=== PATIENT | male | born 1980 | race Caucasian/White ===

== ENCOUNTER 2016-04-03 21:29 | Emergency (ER) | payer OTHER ==
[2016-04-03] MEDS ORDERED: IPRATROPIUM 0.5 MG/2.5 ML NEBU INHALATION STA (21:50)
[2016-04-03] MEDS ORDERED: SODIUM CHLORIDE 0.9% 1,000 ML IV STA (21:50)
[2016-04-03] MEDS ORDERED: MAG HYDROX/AL HYDROX/SIMETH 30 ML, HYOSCYAMINE ELIXIR 10 ML, CIMETIDINE HCL 300 MG PO STA ×3 (21:52)
[2016-04-03] MEDS ORDERED: ALBUTEROL NEBULIZED 2.5 MG/3 ML INHALATION STA ×2 (21:52)
--- NOTE | 2016-04-03 21:54 | ED ---
General Adult HPI - General Chief complaint: Shortness of Breath Stated complaint: EDILMA Time Seen by Provider: 04/03/16 21:44 Source: patient, family, RN notes reviewed Mode of arrival: ambulatory Limitations: no limitations - History of Present Illness Initial comments: Patient is a 35-year-old male with history of lupus presenting to the [facility] stating that he felt short of breath for the past 3 days. Patient reports that one week ago he cut his lab work from his primary care provider which instructed him that he was having a flareup of lupus and placed him on steroids. Patient reports that he's been on prednisone since Wednesday. Patient reports that over the past few days he is felt increased shortness of breath. Patient reports that there feels a tightness in his chest whenever he takes a deep breath. He denies any previous symptoms of this. Patient states that he relates this is due to taking the steroids. He denies any other symptoms she had with the shortness of breath including cough, fever or chills. He does report that he has had some symptoms such as heartburn is a burning sensation. Patient reports that that is currently going away at this time. Patient denies any numbness and tingling in the arms. He denies any headaches or vision changes.Patient denies any recent fever, chills, shortness of breath, chest pain , back pain, abdominal pain, nausea vomiting, numbness or tingling, dysuria or hematuria, constipation or diarrhea, headaches or visual changes, or any other current symptoms - Related Data Home Medications Medication Instructions Recorded Confirmed Clopidogrel [Plavix] 75 mg PO DAILY 11/19/13 04/03/16 Hydroxychloroquine Sulfate 200 mg PO DAILY 11/19/13 04/03/16 [Plaquenil] Previous Rx's Medication Instructions Recorded predniSONE 20 mg PO DIRECTED #12 tab 08/25/15 Albuterol Inhaler [Ventolin Hfa 1 - 2 puff INHALATION Q6HR PRN #1 04/03/16 Inhaler] inhaler Allergies Allergy/AdvReac Type Severity Reaction Status Date / Time Sulfa (Sulfonamide Allergy Rash/Hives Verified 04/03/16 21:45 Antibiotics) hydromorphone HCl AdvReac Chest Pain Verified 04/03/16 21:45 [From Dilaudid] promethazine HCl AdvReac Unknown Verified 02/03/17 21:45 [From Phenergan] Review of Systems ROS Statement: Those systems with pertinent positive or pertinent negative responses have been documented in the HPI. ROS Other: All systems not noted in ROS Statement are negative. Past Medical History Additional Past Medical History / Comment(s): lupus, kidney disease, antiphospholipid , dvt History of Any Multi-Drug Resistant Organisms: None Reported Past Surgical History: Cholecystectomy, Hernia Repair Past Psychological History: No Psychological Hx Reported Smoking Status: Never smoker Past Alcohol Use History: Occasional Past Drug Use History: None Reported General Exam - General Exam Comments Initial Comments: Well appearing healthy 35 year old male. No acute distress. Limitations: no limitations General appearance: alert, in no apparent distress Head exam: Present: atraumatic, normocephalic, normal inspection Eye exam: Present: normal appearance, PERRL, EOMI. Absent: scleral icterus, conjunctival injection, periorbital swelling ENT exam: Present: normal exam, mucous membranes moist Neck exam: Present: normal inspection. Absent: tenderness, meningismus, lymphadenopathy Respiratory exam: Present: normal lung sounds bilaterally, wheezes (mild wheeze with forced expiration.). Absent: respiratory distress, rales, rhonchi, stridor Cardiovascular Exam: Present: regular rate, normal rhythm, normal heart sounds. Absent: systolic murmur, diastolic murmur, rubs, gallop, clicks GI/Abdominal exam: Present: soft, normal bowel sounds. Absent: distended, tenderness, guarding, rebound, rigid Extremities exam: Present: normal inspection, full ROM, normal capillary refill. Absent: tenderness, pedal edema, joint swelling, calf tenderness Back exam: Present: normal inspection Neurological exam: Present: alert, oriented X3, CN II-XII intact Psychiatric exam: Present: normal affect, normal mood Skin exam: Present: warm, dry, intact, normal color. Absent: rash Course Vital Signs 04/03/16 04/03/16 04/03/16 21:43 21:46 22:03 Temperature 98 F Pulse Rate 79 77 Respiratory 22 22 Rate Blood Pressure 154/93 O2 Sat by Pulse 97 Oximetry 04/03/16 04/03/16 04/03/16 22:13 22:45 23:38 Temperature 98 F 97 F L Pulse Rate 78 65 76 Respiratory 18 18 Rate Blood Pressure 145/95 165/90 O2 Sat by Pulse 97 97 Oximetry Medical Decision Making - Medical Decision Making Patient is a 35 year old male with history of lupus, stating for the past 3 days he has felt a tightness in his chest when taking a deep breath. Patient reports that his PCP recently started him on steroids and relates this sensation to taking the steroids. PAtient denies other symptoms such as diaphoresis, nausea, palpitations. PAtient reports the pain is only with a deep breath. CXR shows chronic bronchitis changes. PAtient reports he is much improved after breathing treatment. Patient will be discharged with albuterol inhaler. EKG and lab work was all negative. Patient understands treatment plan and close followup with PCP. Return parameters discussed. - Lab Data Result diagrams: 04/03/16 22:20 04/03/16 22:20 Lab Results 04/03/16 04/03/16 04/03/16 Range/Units 22:20 22:20 22:20 WBC 8.5 (3.8-10.6) k/uL RBC 4.28 L (4.30-5.90) m/uL Hgb 13.8 (13.0-17.5) gm/dL Hct 38.3 L (39.0-53.0) % MCV 89.6 (80.0-100.0) fL MCH 32.2 (25.0-35.0) pg MCHC 35.9 (31.0-37.0) g/dL RDW 13.4 (11.5-15.5) % Plt Count 284 (150-450) k/uL Neutrophils % 56 % Lymphocytes % 31 % Monocytes % 6 % Eosinophils % 5 % Basophils % 1 % Neutrophils # 4.8 (1.3-7.7) k/uL Lymphocytes # 2.6 (1.0-4.8) k/uL Monocytes # 0.5 (0-1.0) k/uL Eosinophils # 0.4 (0-0.7) k/uL Basophils # 0.1 (0-0.2) k/uL Hyperchromasia Slight PT (9.0-12.0) sec INR (<1.1) APTT (22.0-30.0) sec Sodium 139 (137-145) mmol/L Potassium 4.1 (3.5-5.1) mmol/L Chloride 103 (98-107) mmol/L Carbon Dioxide 26 (22-30) mmol/L Anion Gap 10 mmol/L BUN 21 H (9-20) mg/dL Creatinine 1.34 H (0.66-1.25) mg/dL Est GFR (MDRD) Af Amer >60 (>60 ml/min/1.73 sqM) Est GFR (MDRD) Non-Af >60 (>60 ml/min/1.73 sqM) Glucose 97 (74-99) mg/dL Calcium 8.4 (8.4-10.2) mg/dL Total Bilirubin 0.8 (0.2-1.3) mg/dL AST 20 (17-59) U/L ALT 33 (21-72) U/L Alkaline Phosphatase 55 (38-126) U/L Total Creatine Kinase 50 L (55-170) U/L CK-MB (CK-2) 0.3 (0.0-2.4) ng/mL CK-MB (CK-2) Rel Index 0.6 Troponin I <0.012 (0.000-0.034) ng/mL NT-Pro-B Natriuret Pep pg/mL Total Protein 7.2 (6.3-8.2) g/dL Albumin 3.9 (3.5-5.0) g/dL 04/03/16 04/03/16 Range/Units 22:20 22:20 WBC (3.8-10.6) k/uL RBC (4.30-5.90) m/uL Hgb (13.0-17.5) gm/dL Hct (39.0-53.0) % MCV (80.0-100.0) fL MCH (25.0-35.0) pg MCHC (31.0-37.0) g/dL RDW (11.5-15.5) % Plt Count (150-450) k/uL Neutrophils % % Lymphocytes % % Monocytes % % Eosinophils % % Basophils % % Neutrophils # (1.3-7.7) k/uL Lymphocytes # (1.0-4.8) k/uL Monocytes # (0-1.0) k/uL Eosinophils # (0-0.7) k/uL Basophils # (0-0.2) k/uL Hyperchromasia PT 11.1 (9.0-12.0) sec INR 1.1 (<1.1) APTT 36.8 H (22.0-30.0) sec Sodium (137-145) mmol/L Potassium (3.5-5.1) mmol/L Chloride (98-107) mmol/L Carbon Dioxide (22-30) mmol/L Anion Gap mmol/L BUN (9-20) mg/dL Creatinine (0.66-1.25) mg/dL Est GFR (MDRD) Af Amer (>60 ml/min/1.73 sqM) Est GFR (MDRD) Non-Af (>60 ml/min/1.73 sqM) Glucose (74-99) mg/dL Calcium (8.4-10.2) mg/dL Total Bilirubin (0.2-1.3) mg/dL AST (17-59) U/L ALT (21-72) U/L Alkaline Phosphatase (38-126) U/L Total Creatine Kinase (55-170) U/L CK-MB (CK-2) (0.0-2.4) ng/mL CK-MB (CK-2) Rel Index Troponin I (0.000-0.034) ng/mL NT-Pro-B Natriuret Pep 101 pg/mL Total Protein (6.3-8.2) g/dL Albumin (3.5-5.0) g/dL 04/03/16 22:02 EKG shows normal sinus rhythm. Ventricular rate 66 bpm. FL interval 146 ms. QRS duration 92 ms. QT/QTc is 418/438 ms. No evidence of ST elevation or T- wave inversion. No evidence Atrial and ventricular arrhythmias - Radiology Data Radiology results: report reviewed Chest x-ray shows evidence of chronic bronchitis changes. Disposition Clinical Impression: Shortness of breath Disposition: HOME SELF-CARE Condition: Good Instructions: Asthma (ED) Additional Instructions: Patient instructed to follow up with primary care provider as directed. Use inhaler every 4-6 hours or as needed for shortness of breath. Return to the [facility] if any alarming signs or symptoms occur. Prescriptions: Albuterol Inhaler [Ventolin Hfa Inhaler] 1 - 2 puff INHALATION Q6HR PRN #1 inhaler PRN Reason: Pain Referrals: None,Stated [Primary Care Provider] - 1-2 days Time of Disposition: 23:20
[2016-04-03 22:32] LABS: Basophils # (A) 0.1 k/uL (0-0.2); Basophils % (A) 1 %; CH 32.8; CHCM 36.9; Eosinophils # (A) 0.4 k/uL (0-0.7); Eosinophils % (A) 5 %; HCT 38.3 % (39.0-53.0); HDW 3.18; HGB 13.8 gm/dL (13.0-17.5); Hyperchromasia Slight; Luc # (Auto) 0.12; Luc % (Auto) 1; Lymphocytes # (A) 2.6 k/uL (1.0-4.8); Lymphocytes % (A) 31 %; MCH 32.2 pg (25.0-35.0); MCHC 35.9 g/dL (31.0-37.0); MCV 89.6 fL (80.0-100.0); Mean Platelet Volume 7.7; Monocytes # (A) 0.5 k/uL (0-1.0); Monocytes % (A) 6 %; Neutrophils # (A) 4.8 k/uL (1.3-7.7); Neutrophils % (A) 56 %; RBC 4.28 m/uL (4.30-5.90); RDW 13.4 % (11.5-15.5); WBC 8.5 k/uL (3.8-10.6); WBC (Perox) 8.31
[2016-04-03 22:38] LABS: INR 1.1 (<1.1); Partial Thromboplastin Time 36.8 sec (22.0-30.0); Prothrombin Time 11.1 sec (9.0-12.0)
[2016-04-03 22:41] LABS: ALT 33 U/L (21-72); AST 20 U/L (17-59); Alkaline Phosphatase 55 U/L (38-126); Anion Gap 10 mmol/L; Blood Urea Nitrogen 21 mg/dL (9-20); Calcium 8.4 mg/dL (8.4-10.2); Carbon Dioxide 26 mmol/L (22-30); Chloride 103 mmol/L (98-107); Glucose 97 mg/dL (74-99); Non-African American GFR(MDRD) >60 (>60 ml/min/1.73 sqM); Potassium 4.1 mmol/L (3.5-5.1); Sodium 139 mmol/L (137-145); Total Bilirubin 0.8 mg/dL (0.2-1.3); Total Protein 7.2 g/dL (6.3-8.2)
--- NOTE | 2016-04-03 22:47 | XR ---
EXAMINATION TYPE: XR chest 2V DATE OF EXAM: 04/03/2016 10:28 PM COMPARISON: 08/22/2015 HISTORY: Shortness of breath for 2 days. TECHNIQUE: Frontal and lateral views of the chest are obtained. FINDINGS: Mild peribronchial cuffing is noted bilaterally with possible chronic bronchitis changes. There is no focal air space opacity, pleural effusion, or pneumothorax seen. The cardiac silhouette size is within normal limits. The osseous structures are intact. IMPRESSION: 1. Possible chronic bronchitis changes. 2. No focal lung consolidation.
[2016-04-03 22:51] LABS: Creatine Kinase 50 U/L (55-170)
[2016-04-03 22:53] VITALS: RESP 18
[2016-04-03 23:04] LABS: Creatine Kinase MB 0.3 ng/mL (0.0-2.4); Troponin I <0.012 ng/mL (0.000-0.034)
[2016-04-03 23:41] VITALS: BP 165/90; PULSE 76; TEMP 97
== END 2016-04-03 23:41 | disposition home or self-care (01) ==
LOC: EC 21:29
DX: R06.02 Shortness of breath (principal); M32.9 Systemic lupus erythematosus, unspecified; Z88.2 Allergy status to sulfonamides; Z88.8 Allergy status to other drugs, medicaments and biological substances; Z88.5 Allergy status to narcotic agent; Z79.02 Long term (current) use of antithrombotics/antiplatelets; Z86.718 Personal history of other venous thrombosis and embolism; Z79.52 Long term (current) use of systemic steroids
CPT/HCPCS: 36415; 71020; 80053; 82550; 82553; 83880; 84484; 85025; 85610; 85730; 93005; 94640; 96360; 99285

== ENCOUNTER 2016-04-09 14:49 | Emergency (ER) | payer OTHER ==
[2016-04-09 15:10] VITALS: TEMP 98.2
[2016-04-09] MEDS ORDERED: SODIUM CHLORIDE 0.9% 1,000 ML IV STA ×2 (15:52)
--- NOTE | 2016-04-09 15:57 | ED ---
Recheck HPI - General Chief Complaint: Recheck/Abnormal Lab/Rx Stated Complaint: Abnormal Labs - Dr Sent Time Seen by Provider: 04/09/16 15:27 Source: patient Mode of arrival: ambulatory Limitations: no limitations - History of Present Illness Initial Comments: He is a dehydrated, he had the diarrhea and flu for the last couple days denies diarrhea has slowed down today he seen Dr. Chun and she felt that he needs some IV fluids and his kidney functions are bit elevated and also his blood pressure was quite high he has a history of lupus his blood pressure arrival was 196/104. He denies any headache no neck stiffness no chest pain no shortness of breath no abdominal pain no frequency urgency dysuria - Related Data Home Medications Medication Instructions Recorded Confirmed Clopidogrel [Plavix] 75 mg PO DAILY 11/19/13 04/09/16 Hydroxychloroquine Sulfate 200 mg PO BID 11/19/13 04/09/16 [Plaquenil] Allergies Allergy/AdvReac Type Severity Reaction Status Date / Time Sulfa (Sulfonamide Allergy Rash/Hives Verified 04/09/16 15:47 Antibiotics) hydromorphone HCl AdvReac Chest Pain Verified 04/09/16 15:47 [From Dilaudid] promethazine HCl AdvReac Unknown Verified 04/09/16 15:47 [From Phenergan] Review of Systems ROS Statement: Those systems with pertinent positive or pertinent negative responses have been documented in the HPI. ROS Other: All systems not noted in ROS Statement are negative. Past Medical History Additional Past Medical History / Comment(s): lupus, kidney disease, antiphospholipid , dvt History of Any Multi-Drug Resistant Organisms: None Reported Past Surgical History: Cholecystectomy, Hernia Repair Past Psychological History: No Psychological Hx Reported Smoking Status: Never smoker Past Alcohol Use History: Occasional Past Drug Use History: None Reported General Exam - General Exam Comments Initial Comments: General: The patient is awake and alert, in no distress, and does not appear acutely ill. Skin: Skin is warm and dry and no rashes or lesions are noted. Eye: Pupils are equal, round and reactive to light, extra-ocular movements are intact; there is normal conjunctiva bilaterally. Ears, nose, mouth and throat: There are moist mucous membranes and no oral lesions. Neck: The neck is supple, there is no tenderness or JVD. Cardiovascular: There is a regular rate and rhythm. No murmur, rub or gallop is appreciated. Respiratory: To auscultation bilateral, no wheezing no rhonchi no distress respiratory terry noticed Gastrointestinal: Soft, non-distended, non-tender abdomen without masses or organomegaly noted. There is no rebound or guarding present. Bowel sounds are unremarkable. Back: There is no tenderness to palpation in the midline. There is no obvious deformity. Musculoskeletal: Normal ROM, no tenderness, There is no pedal edema. There is no calf tenderness or swelling. No cords were appreciated. Neurological: CN II-XII intact, Cranial nerves III through XII are intact. There are no obvious motor or sensory deficits. Coordination appears grossly intact. Speech is normal. Psychiatric: Cooperative, appropriate mood & affect, normal judgment. Limitations: no limitations Course Vital Signs 04/09/16 04/09/16 15:07 18:31 Temperature 98.2 F Pulse Rate 75 92 Respiratory 20 18 Rate Blood Pressure 196/104 131/79 O2 Sat by Pulse 97 96 Oximetry EKG is normal sinus rhythm ventricular rate is 64 MS interval is 156 QRS duration is 100 QT/QTc is 434/447 review of this EKG does not reveal any ST elevation or ST depression Medical Decision Making - Lab Data Result diagrams: 04/09/16 16:18 04/09/16 16:18 Lab Results 04/09/16 04/09/16 04/09/16 Range/Units 16:18 16:18 17:20 WBC 6.6 (3.8-10.6) k/uL RBC 4.39 (4.30-5.90) m/uL Hgb 14.2 (13.0-17.5) gm/dL Hct 39.0 (39.0-53.0) % MCV 88.8 (80.0-100.0) fL MCH 32.3 (25.0-35.0) pg MCHC 36.4 (31.0-37.0) g/dL RDW 12.9 (11.5-15.5) % Plt Count 246 (150-450) k/uL Neutrophils % 63 % Lymphocytes % 21 % Monocytes % 9 % Eosinophils % 4 % Basophils % 1 % Neutrophils # 4.1 (1.3-7.7) k/uL Lymphocytes # 1.4 (1.0-4.8) k/uL Monocytes # 0.6 (0-1.0) k/uL Eosinophils # 0.3 (0-0.7) k/uL Basophils # 0.1 (0-0.2) k/uL Hyperchromasia Slight Sodium 140 (137-145) mmol/L Potassium 4.3 (3.5-5.1) mmol/L Chloride 103 (98-107) mmol/L Carbon Dioxide 27 (22-30) mmol/L Anion Gap 10 mmol/L BUN 15 (9-20) mg/dL Creatinine 1.43 H (0.66-1.25) mg/dL Est GFR (MDRD) Af Amer >60 (>60 ml/min/1.73 sqM) Est GFR (MDRD) Non-Af 57 (>60 ml/min/1.73 sqM) Glucose 94 (74-99) mg/dL Calcium 8.4 (8.4-10.2) mg/dL Total Bilirubin 1.2 (0.2-1.3) mg/dL AST 23 (17-59) U/L ALT 30 (21-72) U/L Alkaline Phosphatase 57 (38-126) U/L Total Protein 7.2 (6.3-8.2) g/dL Albumin 4.0 (3.5-5.0) g/dL Urine Color Light Yellow Urine Appearance Clear (Clear) Urine pH 6.0 (5.0-8.0) Ur Specific [place] 1.003 (1.001-1.035) Urine Protein 1+ H (Negative) Urine Glucose (UA) Negative (Negative) Urine Ketones Negative (Negative) Urine Blood Negative (Negative) Urine Nitrate Negative (Negative) Urine Bilirubin Negative (Negative) Urine Urobilinogen <2.0 (<2.0) mg/dL Ur Leukocyte Esterase Negative (Negative) Urine RBC <1 (0-5) /hpf Urine WBC 4 (0-5) /hpf Hyaline Casts 1 (0-2) /lpf Disposition Clinical Impression: Chronic renal insufficiency Disposition: HOME SELF-CARE Condition: Good Instructions: Chronic Kidney Disease (ED)
[2016-04-09 16:27] LABS: Basophils # (A) 0.1 k/uL (0-0.2); Basophils % (A) 1 %; CHCM 37.4; Eosinophils # (A) 0.3 k/uL (0-0.7); Eosinophils % (A) 4 %; HDW 3.26; HGB 14.2 gm/dL (13.0-17.5); Hyperchromasia Slight; Luc # (Auto) 0.15; Luc % (Auto) 2; Lymphocytes # (A) 1.4 k/uL (1.0-4.8); Lymphocytes % (A) 21 %; MCH 32.3 pg (25.0-35.0); MCHC 36.4 g/dL (31.0-37.0); MCV 88.8 fL (80.0-100.0); Mean Platelet Volume 7.6; Monocytes # (A) 0.6 k/uL (0-1.0); Monocytes % (A) 9 %; Neutrophils # (A) 4.1 k/uL (1.3-7.7); Neutrophils % (A) 63 %; RBC 4.39 m/uL (4.30-5.90); RDW 12.9 % (11.5-15.5); WBC 6.6 k/uL (3.8-10.6); WBC (Perox) 6.55
[2016-04-09 17:22] LABS: ALT 30 U/L (21-72); AST 23 U/L (17-59); Alkaline Phosphatase 57 U/L (38-126); Anion Gap 10 mmol/L; Blood Urea Nitrogen 15 mg/dL (9-20); Calcium 8.4 mg/dL (8.4-10.2); Carbon Dioxide 27 mmol/L (22-30); Chloride 103 mmol/L (98-107); Glucose 94 mg/dL (74-99); Non-African American GFR(MDRD) 57 (>60 ml/min/1.73 sqM); Potassium 4.3 mmol/L (3.5-5.1); Sodium 140 mmol/L (137-145); Total Bilirubin 1.2 mg/dL (0.2-1.3); Total Protein 7.2 g/dL (6.3-8.2)
[2016-04-09 17:45] LABS: Appearance,Urine Clear (Clear); Bilirubin,Urine Negative (Negative); Glucose,Urine (UA) Negative (Negative); Ketones,Urine Negative (Negative); Leukocyte Esterase,Urine Negative (Negative); Nitrite,Urine Negative (Negative); Particle Count 355; Protein,Urine 1+ (Negative); RBC,Urine <1 /hpf (0-5); Specific Gravity,Urine 1.003 (1.001-1.035); UA Billing (MACRO vs. MICRO) MICRO; Urobilinogen,Urine <2.0 mg/dL (<2.0); WBC,Urine 4 /hpf (0-5)
[2016-04-09 18:34] VITALS: BP 131/79; PULSE 92; RESP 18
== END 2016-04-09 19:54 | disposition home or self-care (01) ==
LOC: EC 14:49
DX: N18.9 Chronic kidney disease, unspecified (principal); M32.9 Systemic lupus erythematosus, unspecified; Z79.02 Long term (current) use of antithrombotics/antiplatelets; Z79.899 Other long term (current) drug therapy; Z88.5 Allergy status to narcotic agent; Z88.2 Allergy status to sulfonamides; Z88.8 Allergy status to other drugs, medicaments and biological substances; Z86.718 Personal history of other venous thrombosis and embolism
CPT/HCPCS: 36415; 80053; 81001; 85025; 93005; 96360; 96361; 99283

== ENCOUNTER 2016-04-14 13:37 | Emergency (ER) | payer OTHER ==
[2016-04-14 13:47] VITALS: TEMP 98
[2016-04-14] MEDS ORDERED: SODIUM CHLORIDE 0.9% 500 ML IV STA (14:24)
--- NOTE | 2016-04-14 14:29 | ED ---
Recheck HPI - General Chief Complaint: Recheck/Abnormal Lab/Rx Stated Complaint: Sent By Dr. Pittman-director group sales Time Seen by Provider: 04/14/16 14:07 Source: patient Mode of arrival: ambulatory Limitations: no limitations - History of Present Illness Initial Comments: This patient is a 35-year-old man with history of lupus and some underlying kidney disease related to the lupus, who presents because he states blood pressure is somewhat labile over the past 6 or so days. The patient states that when he measures the blood pressure at home he sometimes finds diastolic reading up to 110. He had spoken with his director group sales Dr. Chun, who wanted him to be seen here and have his kidney function retested, and she had also mentioned that he may require admission. The patient has been seen here a couple of times over the past approximately one week. He did have some IV hydration and labs and was sent home and follow-up. The patient on the review of systems also reports that he has had some intermittent diarrhea over the past week. MD Complaint: abnormal lab -: days(s) Returns Today for: other (Labile blood pressure) Symptoms Since Prior Visit: no new symptoms Associated Symptoms: none - Related Data Home Medications Medication Instructions Recorded Confirmed Clopidogrel [Plavix] 75 mg PO DAILY 11/19/13 04/14/16 Hydroxychloroquine Sulfate 200 mg PO BID 11/19/13 04/14/16 [Plaquenil] Previous Rx's Medication Instructions Recorded Hydrochlorothiazide 25 mg PO DAILY #15 tablet 04/14/16 Allergies Allergy/AdvReac Type Severity Reaction Status Date / Time Sulfa (Sulfonamide Allergy Rash/Hives Verified 04/14/16 14:12 Antibiotics) hydromorphone HCl AdvReac Chest Pain Verified 04/14/16 14:12 [From Dilaudid] promethazine HCl AdvReac Unknown Verified 04/14/16 14:12 [From Phenergan] Review of Systems ROS Statement: Those systems with pertinent positive or pertinent negative responses have been documented in the HPI. ROS Other: All systems not noted in ROS Statement are negative. Constitutional: Denies: fever, chills, weakness Respiratory: Denies: cough, dyspnea Cardiovascular: Denies: chest pain, palpitations, edema Gastrointestinal: Reports: diarrhea. Denies: abdominal pain, nausea, vomiting, melena, hematochezia Genitourinary: Denies: dysuria, hematuria Musculoskeletal: Reports: myalgia Skin: Denies: rash Neurological: Denies: headache, weakness Past Medical History Additional Past Medical History / Comment(s): lupus, kidney disease, antiphospholipid , dvt History of Any Multi-Drug Resistant Organisms: None Reported Past Surgical History: Cholecystectomy, Hernia Repair Past Psychological History: No Psychological Hx Reported Smoking Status: Never smoker Past Alcohol Use History: Occasional Past Drug Use History: None Reported General Exam Limitations: no limitations General appearance: alert, in no apparent distress Head exam: Present: atraumatic, normocephalic Eye exam: Present: normal appearance. Absent: scleral icterus, conjunctival injection ENT exam: Present: normal oropharynx, mucous membranes moist Respiratory exam: Present: normal lung sounds bilaterally. Absent: respiratory distress, wheezes, rales, rhonchi, stridor Cardiovascular Exam: Present: regular rate, normal rhythm, normal heart sounds. Absent: systolic murmur, diastolic murmur, rubs, gallop GI/Abdominal exam: Present: soft. Absent: distended, tenderness, guarding, rebound, mass Extremities exam: Present: normal inspection, normal capillary refill. Absent: pedal edema, calf tenderness Back exam: Present: normal inspection. Absent: CVA tenderness (R), CVA tenderness (L) Neurological exam: Present: alert Skin exam: Present: warm, dry, intact, normal color. Absent: rash Course Vital Signs 04/14/16 04/14/16 13:42 13:55 Temperature 98.0 F Pulse Rate 84 80 Respiratory 18 14 Rate Blood Pressure 157/102 149/85 O2 Sat by Pulse 98 95 Oximetry Medical Decision Making - Medical Decision Making This patient is a 35-year-old man with history of lupus, who presents for reevaluation of his blood pressure and of his kidney function. I discussed results of his tests today and his vital signs with Dr. Chun, who manages his lupus, and she requests that the patient receive hydrochlorothiazide and follow-up in approximately 3 days for reassessment. - Lab Data Result diagrams: 04/14/16 14:40 04/14/16 14:40 Lab Results 04/14/16 04/14/16 04/14/16 Range/Units 14:40 14:40 14:45 WBC 12.2 H (3.8-10.6) k/uL RBC 4.64 (4.30-5.90) m/uL Hgb 14.9 (13.0-17.5) gm/dL Hct 41.2 (39.0-53.0) % MCV 88.8 (80.0-100.0) fL MCH 32.0 (25.0-35.0) pg MCHC 36.0 (31.0-37.0) g/dL RDW 13.3 (11.5-15.5) % Plt Count 299 (150-450) k/uL Neutrophils % 78 % Lymphocytes % 13 % Monocytes % 5 % Eosinophils % 2 % Basophils % 0 % Neutrophils # 9.5 H (1.3-7.7) k/uL Lymphocytes # 1.5 (1.0-4.8) k/uL Monocytes # 0.6 (0-1.0) k/uL Eosinophils # 0.3 (0-0.7) k/uL Basophils # 0.1 (0-0.2) k/uL Hyperchromasia Slight Sodium 141 (137-145) mmol/L Potassium 4.2 (3.5-5.1) mmol/L Chloride 103 (98-107) mmol/L Carbon Dioxide 27 (22-30) mmol/L Anion Gap 11 mmol/L BUN 16 (9-20) mg/dL Creatinine 1.40 H (0.66-1.25) mg/dL Est GFR (MDRD) Af Amer >60 (>60 ml/min/1.73 sqM) Est GFR (MDRD) Non-Af 58 (>60 ml/min/1.73 sqM) Glucose 104 H (74-99) mg/dL Calcium 8.7 (8.4-10.2) mg/dL Total Bilirubin 1.0 (0.2-1.3) mg/dL AST 28 (17-59) U/L ALT 40 (21-72) U/L Alkaline Phosphatase 58 (38-126) U/L C-Reactive Protein <5.0 (<10.0) mg/L Total Protein 7.5 (6.3-8.2) g/dL Albumin 4.2 (3.5-5.0) g/dL Urine Color Colorless Urine Appearance Clear (Clear) Urine pH 7.0 (5.0-8.0) Ur Specific [place] 1.003 (1.001-1.035) Urine Protein 1+ H (Negative) Urine Glucose (UA) Negative (Negative) Urine Ketones Negative (Negative) Urine Blood Negative (Negative) Urine Nitrate Negative (Negative) Urine Bilirubin Negative (Negative) Urine Urobilinogen <2.0 (<2.0) mg/dL Ur Leukocyte Esterase Negative (Negative) Urine RBC 1 (0-5) /hpf Urine WBC <1 (0-5) /hpf Urine Mucus Rare H (None) /hpf Urine Opiates Screen Not Detected (NotDetected) Ur Oxycodone Screen Not Detected (NotDetected) Urine Methadone Screen Not Detected (NotDetected) Ur Propoxyphene Screen Not Detected (NotDetected) Ur Barbiturates Screen Not Detected (NotDetected) U Tricyclic Antidepress Not Detected (NotDetected) Ur Phencyclidine Scrn Not Detected (NotDetected) Ur Amphetamines Screen Not Detected (NotDetected) U Methamphetamines Scrn Not Detected (NotDetected) U Benzodiazepines Scrn Not Detected (NotDetected) Urine Cocaine Screen Not Detected (NotDetected) U Marijuana (THC) Screen Not Detected (NotDetected) Disposition Clinical Impression: Hypertension, Chronic renal insufficiency Disposition: HOME SELF-CARE Condition: Fair Instructions: Hypertension (ED), Chronic Kidney Disease (ED) Prescriptions: Hydrochlorothiazide 25 mg PO DAILY #15 tablet Referrals: Daysi Purdy MD [Primary Care Provider] - 1-2 days
[2016-04-14 15:00] LABS: Appearance,Urine Clear (Clear); Bilirubin,Urine Negative (Negative); Glucose,Urine (UA) Negative (Negative); Ketones,Urine Negative (Negative); Leukocyte Esterase,Urine Negative (Negative); Mucus,Urine Rare /hpf; Nitrite,Urine Negative (Negative); Particle Count 807; Protein,Urine 1+ (Negative); RBC,Urine 1 /hpf (0-5); Specific Gravity,Urine 1.003 (1.001-1.035); UA Billing (MACRO vs. MICRO) MICRO; Urobilinogen,Urine <2.0 mg/dL (<2.0); WBC,Urine <1 /hpf (0-5)
[2016-04-14 15:04] LABS: ALT 40 U/L (21-72); AST 28 U/L (17-59); Alkaline Phosphatase 58 U/L (38-126); Anion Gap 11 mmol/L; Basophils # (A) 0.1 k/uL (0-0.2); Basophils % (A) 0 %; Blood Urea Nitrogen 16 mg/dL (9-20); C Reactive Protein <5.0 mg/L (<10.0); CH 33.3; CHCM 37.7; Calcium 8.7 mg/dL (8.4-10.2); Carbon Dioxide 27 mmol/L (22-30); Chloride 103 mmol/L (98-107); Eosinophils # (A) 0.3 k/uL (0-0.7); Eosinophils % (A) 2 %; Glucose 104 mg/dL (74-99); HCT 41.2 % (39.0-53.0); HDW 3.14; HGB 14.9 gm/dL (13.0-17.5); Hyperchromasia Slight; Luc # (Auto) 0.21; Luc % (Auto) 2; Lymphocytes # (A) 1.5 k/uL (1.0-4.8); Lymphocytes % (A) 13 %; MCV 88.8 fL (80.0-100.0); Mean Platelet Volume 6.5; Monocytes # (A) 0.6 k/uL (0-1.0); Monocytes % (A) 5 %; Neutrophils # (A) 9.5 k/uL (1.3-7.7); Neutrophils % (A) 78 %; Non-African American GFR(MDRD) 58 (>60 ml/min/1.73 sqM); Potassium 4.2 mmol/L (3.5-5.1); RBC 4.64 m/uL (4.30-5.90); RDW 13.3 % (11.5-15.5); Sodium 141 mmol/L (137-145); Total Protein 7.5 g/dL (6.3-8.2); WBC 12.2 k/uL (3.8-10.6); WBC (Perox) 12.88
[2016-04-14 16:31] LABS: Erythrocyte Sedimentation Rate 33 mm/hr (0-15)
[2016-04-14] MEDS ORDERED: HYDROCHLOROTHIAZIDE 25 MG TAB PO STA (16:46)
[2016-04-14 17:25] VITALS: BP 140/90; PULSE 79; RESP 18
[2016-04-15] MEDS ORDERED: HYDROCHLOROTHIAZIDE 25 MG TAB PO SCH (09:00)
== END 2016-04-14 17:24 | disposition home or self-care (01) ==
LOC: EC 13:37
DX: I12.9 Hypertensive chronic kidney disease with stage 1 through stage 4 chronic kidney disease, or unspecified chronic kidney disease (principal); N18.9 Chronic kidney disease, unspecified; M32.9 Systemic lupus erythematosus, unspecified; Z79.02 Long term (current) use of antithrombotics/antiplatelets; Z79.899 Other long term (current) drug therapy; Z88.2 Allergy status to sulfonamides; Z88.5 Allergy status to narcotic agent
CPT/HCPCS: 36415; 80053; 80306; 81001; 85025; 85652; 86140; 99283

== ENCOUNTER 2016-04-18 10:13 | Emergency (ER) | payer OTHER ==
[2016-04-18 10:21] VITALS: BP 142/90; PULSE 100; RESP 18; TEMP 98
[2016-04-18] MEDS ORDERED: diphenhydrAMINE 25 MG CAP PO STA (10:31)
[2016-04-18] MEDS ORDERED: FAMOTIDINE 20 MG TAB PO STA (10:31)
--- NOTE | 2016-04-18 10:35 | ED ---
General Adult HPI - General Chief complaint: Allergic Reaction Stated complaint: ALLERGIC REACTION , POSS NEW MED Time Seen by Provider: 04/18/16 10:23 Source: patient, RN notes reviewed Mode of arrival: ambulatory Limitations: no limitations - History of Present Illness Initial comments: Patient is 35-year-old male who presents emergency room today with chief complaint of possible ALLERGIC reaction. He does admit that he was seen here the emergency room recently started on hydrochlorothiazide. States that he broke out in a small rash. States he was changing started taking Norvasc. States took first dose last night prior to bedtime. States that he woke up in the middle night very hot and sweaty. States he woke up this morning noticed that he had hives. Patient does admit that it's itchy. States somewhat improved but did not take any medications prior to arrival. Patient denies any other complaints or symptoms at this time. Patient denies any recent fever, chills, shortness of breath, chest pain, back pain, abdominal pain, nausea or vomiting, numbness or tingling, dysuria or hematuria, constipation or diarrhea, headaches or visual changes, or any other complaints. - Related Data Home Medications Medication Instructions Recorded Confirmed Clopidogrel [Plavix] 75 mg PO DAILY 11/19/13 04/14/16 Hydroxychloroquine Sulfate 200 mg PO BID 11/19/13 04/14/16 [Plaquenil] Previous Rx's Medication Instructions Recorded Hydrochlorothiazide 25 mg PO DAILY #15 tablet 04/14/16 Famotidine [Pepcid] 20 mg PO BID #20 tablet 04/18/16 diphenhydrAMINE [Benadryl] 1 - 2 tab PO Q6HR PRN #30 capsule 04/18/16 Allergies Allergy/AdvReac Type Severity Reaction Status Date / Time Sulfa (Sulfonamide Allergy Rash/Hives Verified 04/18/16 10:21 Antibiotics) hydromorphone HCl AdvReac Chest Pain Verified 04/18/16 10:21 [From Dilaudid] promethazine HCl AdvReac Unknown Verified 04/18/16 10:21 [From Phenergan] Review of Systems ROS Statement: Those systems with pertinent positive or pertinent negative responses have been documented in the HPI. ROS Other: All systems not noted in ROS Statement are negative. Past Medical History Past Medical History: Hypertension Additional Past Medical History / Comment(s): lupus, kidney disease, antiphospholipid , dvt History of Any Multi-Drug Resistant Organisms: None Reported Past Surgical History: Cholecystectomy, Hernia Repair Past Psychological History: No Psychological Hx Reported Smoking Status: Never smoker Past Alcohol Use History: Occasional Past Drug Use History: None Reported General Exam - General Exam Comments Initial Comments: General: The patient is awake and alert, in no distress, and does not appear acutely ill. Eye: Pupils are equal, round and reactive to light, extra-ocular movements are intact. No nystagmus. There is normal conjunctiva bilaterally. No signs of icterus. Ears, nose, mouth and throat: There are moist mucous membranes and no oral lesions. Neck: The neck is supple, there is no tenderness or JVD. Cardiovascular: There is a regular rate and rhythm. No murmur, rub or gallop is appreciated. Respiratory: Lungs are clear to auscultation, respirations are non-labored, breath sounds are equal. No wheezes, stridor, rales, or rhonchi. Musculoskeletal: Normal ROM, no tenderness. Strength 5/5. Sensation intact. Pulses equal bilaterally 2+. Neurological: A&O x 3. CN II-XII intact, There are no obvious motor or sensory deficits. Coordination appears grossly intact. Speech is normal. Skin: Skin is warm and dry and no rashes or lesions are noted. Psychiatric: Cooperative, appropriate mood & affect, normal judgment. Limitations: no limitations Course Vital Signs 04/18/16 10:18 Temperature 98.0 F Pulse Rate 100 Respiratory 18 Rate Blood Pressure 142/90 O2 Sat by Pulse 98 Oximetry Medical Decision Making - Medical Decision Making Patient will be given dose of Benadryl and Pepcid here in the emergency room will be continued on at home. Advised to return to emergency room symptoms increase or worsen. At this time patient's blood pressure currently 142/90. Hold blood pressure medicine as he is currently having reaction. Have a reaction to hydrochlorothiazide recently. Hold blood pressure medicine at this time is will be unsure if he is having another reaction to new medication. Patient states understanding and is agreement with this plan. Patient will follow-up with family doctor in 2 days. Disposition Clinical Impression: Allergic reaction Disposition: HOME SELF-CARE Condition: Good Instructions: Urticaria (ED) Additional Instructions: Please follow-up family doctor over the next 2 days and discuss blood pressure medications. Please continue Benadryl one to 2 tabs every 6 hours along with Pepcid as prescribed. Please return for any other concerns. Prescriptions: Famotidine [Pepcid] 20 mg PO BID #20 tablet diphenhydrAMINE [Benadryl] 1 - 2 tab PO Q6HR PRN #30 capsule PRN Reason: Allergic Reaction Time of Disposition: 10:35
== END 2016-04-18 10:48 | disposition home or self-care (01) ==
LOC: EC 10:13
DX: L50.9 Urticaria, unspecified (principal); T50.2X5A Adverse effect of carbonic-anhydrase inhibitors, benzothiadiazides and other diuretics, initial encounter; Z86.718 Personal history of other venous thrombosis and embolism; Z79.01 Long term (current) use of anticoagulants; Z79.899 Other long term (current) drug therapy; Z88.2 Allergy status to sulfonamides; Z88.5 Allergy status to narcotic agent; Z88.8 Allergy status to other drugs, medicaments and biological substances
CPT/HCPCS: 99283

== ENCOUNTER → 2016-06-17 | Outpatient (CLI) | payer OTHER ==
--- NOTE | 2016-06-17 15:22 | CT ---
EXAMINATION TYPE: CT chest wo con DATE OF EXAM: 06/17/2016 2:35 PM COMPARISON: NONE HISTORY: Shortness of breath/dyspnea per order. History of lupus. CT DLP: 235.9 mGycm. Automated Exposure Control for Dose Reduction was Utilized. TECHNIQUE: CT scan of the thorax is performed without IV contrast. FINDINGS: LUNGS: The lungs are predominantly clear, there is no concerning parenchymal mass or nodule identifie d. There is minimal linear scarring or atelectasis in the right middle lobe near axial image 45. The re is no pleural effusion or pneumothorax seen. The tracheobronchial tree is patent. MEDIASTINUM: Lack of IV contrast is noted to limit evaluation for mediastinal and especially hilar ad enopathy. There are no definitive greater than 1 cm hilar or mediastinal lymph nodes. No cardiomega ly or pericardial effusion is seen. OTHER: Cholecystectomy clips are present. Mild multilevel spurring in thoracic spine is seen. IMPRESSION: Minimal linear scarring in the right middle lobe, no acute pulmonary process is evident.
== END ==
LOC: RADCTMAIN 14:19
PROVIDERS: ATTEND Internal Medicine Rheumatology
DX: J98.4 Other disorders of lung (principal)
CPT/HCPCS: 71250

== ENCOUNTER → 2017-04-12 | Outpatient (CLI) | payer OTHER ==
[2017-04-12 21:16] LABS: Appearance,Urine Clear (Clear); Bilirubin,Urine Negative (Negative); Blood,Urine Negative (Negative); Color,Urine Light Yellow; Glucose,Urine (UA) Negative (Negative); Ketones,Urine Negative (Negative); Leukocyte Esterase,Urine Negative (Negative); Nitrite,Urine Negative (Negative); Protein,Urine Negative (Negative); Specific Gravity,Urine 1.003 (1.001-1.035); Urobilinogen,Urine <2.0 mg/dL (<2.0)
[2017-04-12 21:21] LABS: Basophils # (A) 0.1 k/uL (0-0.2); Basophils % (A) 1 %; Eosinophils # (A) 0.1 k/uL (0-0.7); Eosinophils % (A) 1 %; HCT 43.2 % (39.0-53.0); HGB 14.2 gm/dL (13.0-17.5); Lymphocytes # (A) 1.5 k/uL (1.0-4.8); Lymphocytes % (A) 19 %; MCHC 32.8 g/dL (31.0-37.0); MCV 91.5 fL (80.0-100.0); Mean Platelet Volume 6.8; Monocytes # (A) 0.6 k/uL (0-1.0); Monocytes % (A) 7 %; Neutrophils # (A) 5.7 k/uL (1.3-7.7); Neutrophils % (A) 71 %; Platelet Count 406 k/uL (150-450); RBC 4.73 m/uL (4.30-5.90); RDW 12.4 % (11.5-15.5)
[2017-04-12 21:25] LABS: Anion Gap 13 mmol/L; Blood Urea Nitrogen 20 mg/dL (9-20); Calcium 9.6 mg/dL (8.4-10.2); Carbon Dioxide 29 mmol/L (22-30); Chloride 99 mmol/L (98-107); Glucose 99 mg/dL (74-99); Magnesium 2.4 mg/dL (1.6-2.3); Potassium 4.5 mmol/L (3.5-5.1); Sodium 141 mmol/L (137-145); Uric Acid 5.5 mg/dL (3.5-8.5)
[2017-04-13 01:35] LABS: Parathyroid Hormone Intact 17.6 pg/mL (14.0-72.0)
[2017-04-13 01:52] LABS: Iron Saturation 26.19 (15.00-50.00)
[2017-04-13 02:01] LABS: Vitamin D 25 Hydroxy 25.4 ng/mL (30.0-100.0)
== END | disposition home or self-care (01) ==
LOC: LABMAIN 19:17
PROVIDERS: ATTEND Internal Medicine Nephrology
DX: M32.9 Systemic lupus erythematosus, unspecified (principal); E55.9 Vitamin D deficiency, unspecified; R80.9 Proteinuria, unspecified
CPT/HCPCS: 36415; 80048; 81003; 82306; 82728; 83540; 83550; 83735; 83970; 84100; 84550; 85025

== ENCOUNTER → 2017-05-04 | Outpatient (CLI) | payer OTHER ==
--- NOTE | 2017-05-04 07:36 | MR ---
EXAMINATION TYPE: MR lumbar spine wo con DATE OF EXAM: 05/04/2017 COMPARISON: 04/18/2014 HISTORY: Intervertebral disc displacement, lumbar back pain CONTRAST: 0 mL intravenous Gadavist. TECHNIQUE: Multiplanar, multisequence images of the lumbar spine were acquired. FINDINGS: Cord terminates at the L2 level. L5-S1: Some mild left paracentral disc bulge into the epidural space is present. No exiting nerve sue t contact or thecal sac contact is evident. No spinal canal stenosis or neural foraminal stenosis is present. L4-L5: Disc desiccation is present. Disc height is preserved. There is increased signal along the pos terior disc space on T2-weighted sequences compatible with an annular tear. Some focal bulging at the level of the annular tear has mild anterior thecal sac contact. No spinal canal stenosis. No dante inal stenosis. Neural foramen are patent.. L3-L4: No significant disc bulge or disc herniation. No spinal canal stenosis. No foraminal stenosi s. L2-L3: No significant disc bulge or disc herniation. No spinal canal stenosis. No foraminal stenosi s. L1-L2: No significant disc bulge or disc herniation. No spinal canal stenosis. No foraminal stenosi s. T12-L1: No significant disc bulge or disc herniation. No spinal canal stenosis. No foraminal stenos is. IMPRESSION: 1. Annular tear at L4-5 with mild disc bulging. No spinal canal stenosis is evident. 2. Disc desiccation without loss of disc height L4-5. 3. Mild left paracentral disc bulging L5-S1 without thecal sac contact. 4. The disc bulging L4-5 has diminished from the comparison 2014. L5-S1 level appears stable.
== END | disposition home or self-care (01) ==
LOC: RADMRIMAIN 06:57
PROVIDERS: ATTEND Internal Medicine Rheumatology
DX: M51.27 Other intervertebral disc displacement, lumbosacral region (principal); M51.06 Intervertebral disc disorders with myelopathy, lumbar region
CPT/HCPCS: 72148

== ENCOUNTER 2017-06-17 00:57 | Emergency (ER) | payer OTHER ==
[2017-06-17] MEDS ORDERED: FAMOTIDINE 20 MG TAB PO STA (01:21)
[2017-06-17] MEDS ORDERED: diphenhydrAMINE 50 MG CAP PO STA (01:21)
--- NOTE | 2017-06-17 01:59 | CT ---
EXAMINATION TYPE: CT brain wo con DATE OF EXAM: 06/17/2017 COMPARISON: 05/02/2015 HISTORY: Patient fell hitting LT temporal and zygomatic bone Patient is on blood thinners CT DLP: 1012.70 mGycm. Automated Exposure Control for Dose Reduction was Utilized. TECHNIQUE: CT scan of the head is performed without contrast. FINDINGS: Ventricles of normal size. There is no mass effect nor midline shift. There is no sign of intracranial hemorrhage. The calvarium is intact. Mild soft tissue swelling over the left frontal gisele ne. CONCLUSION: Negative CT scan of the brain. There is clearing of most of of left frontal scalp hematoma compared t o old exam..
--- NOTE | 2017-06-17 02:04 | CT ---
EXAMINATION TYPE: CT facial bones wo con DATE OF EXAM: 06/17/2017 COMPARISON: NONE HISTORY: Patient fell hitting LT temporal and zygomatic bone Patient is on blood thinners CT DLP: 489.60 mGycm Automated exposure control for dose reduction was used. TECHNIQUE: CT scan of the sinuses is performed without contrast, axial images are obtained, coronal r eformatted images are also reviewed. FINDINGS: There is fairly normal development and aeration of the paranasal sinuses. Orbital margins a re intact. There is no evidence of blowout fracture. Mandible appears intact. Maxilla is intact. Ther e is no evidence of an orbital mass. Nasal bone is intact. IMPRESSION: Negative CT scan of the facial bones. No fracture. There is clearing of the mild maxillar y mucosal thickening compared to old exam.
--- NOTE | 2017-06-17 02:20 | ED ---
Allergic Reaction HPI - General Chief complaint: Allergic Reaction Stated complaint: ALLERGIC REACTION Time Seen by Provider: 06/17/17 01:16 Source: patient Mode of arrival: wheelchair Limitations: no limitations - History of Present Illness Initial Comments: 36-year-old male patient presents to the emergency department today for complaints of generalized hives. Patient states that around 8 PM he took his first dose of Lyrica. States around 10 PM he developed generalized itchy rash. He states that he was also feeling a little disoriented and dizzy. States he did have experienced a fall with this and struck his head on the wall. He denies any loss of consciousness with this. He is reporting a headache currently. He denies any double or blurred vision. Denies any nausea or vomiting with this. Patient does take Plavix for a bleeding disorder. Patient also has a history of lupus and takes steroids for this. He denies any throat swelling, trouble breathing, lip or tongue swelling. Patient denies any recent fever, chills, shortness breath, chest pain, abdominal pain, nausea, vomiting, diarrhea, constipation, back pain, numbness, tingling, dizziness, weakness, hematuria, dysuria, urinary urgency, urinary frequency, or any other complaints. - Related Data Home Medications Medication Instructions Recorded Confirmed Clopidogrel [Plavix] 75 mg PO DAILY 11/19/13 04/14/16 Hydroxychloroquine Sulfate 200 mg PO BID 11/19/13 04/14/16 [Plaquenil] Previous Rx's Medication Instructions Recorded Hydrochlorothiazide 25 mg PO DAILY #15 tablet 04/14/16 Famotidine [Pepcid] 20 mg PO BID #20 tablet 04/18/16 diphenhydrAMINE [Benadryl] 1 - 2 tab PO Q6HR PRN #30 capsule 04/18/16 Allergies Allergy/AdvReac Type Severity Reaction Status Date / Time Sulfa (Sulfonamide Allergy Rash/Hives Verified 04/18/16 10:21 Antibiotics) hydromorphone HCl AdvReac Chest Pain Verified 04/18/16 10:21 [From Dilaudid] promethazine HCl AdvReac Unknown Verified 04/18/16 10:21 [From Phenergan] Review of Systems ROS Statement: Those systems with pertinent positive or pertinent negative responses have been documented in the HPI. ROS Other: All systems not noted in ROS Statement are negative. Past Medical History Past Medical History: Hypertension Additional Past Medical History / Comment(s): lupus, kidney disease, antiphospholipid , dvt History of Any Multi-Drug Resistant Organisms: None Reported Past Surgical History: Cholecystectomy, Hernia Repair Past Psychological History: No Psychological Hx Reported Smoking Status: Never smoker Past Alcohol Use History: Occasional Past Drug Use History: None Reported General Exam Limitations: no limitations General appearance: alert, in no apparent distress, other (This is a well- developed, well-nourished adult male patient in no acute distress. Vital signs upon presentation are temperature 98.0F, pulse 80, respirations 16, blood pressure 131/70, pulse ox 98% on room air.) Head exam: Present: normocephalic, other (Patient exhibits soft tissue swelling to the left temporal and left frontal region.). Absent: atraumatic, normal inspection Eye exam: Present: normal appearance, PERRL, EOMI. Absent: scleral icterus, conjunctival injection, periorbital swelling ENT exam: Present: normal exam, normal oropharynx, mucous membranes moist Neck exam: Present: normal inspection, full ROM (Nontender, no step-off, no deformity to firm midline palpation of the posterior cervical spine. Full range of motion without pain or limitation.). Absent: tenderness, meningismus, lymphadenopathy Respiratory exam: Present: normal lung sounds bilaterally. Absent: respiratory distress, wheezes, rales, rhonchi, stridor Cardiovascular Exam: Present: regular rate, normal rhythm, normal heart sounds. Absent: systolic murmur, diastolic murmur, rubs, gallop, clicks GI/Abdominal exam: Present: soft, normal bowel sounds. Absent: distended, tenderness, guarding, rebound, rigid Back exam: Present: normal inspection, other (Nontender, no step-off, no deformity to firm midline palpation of the thoracic and lumbar vertebrae. Full range of motion without pain or limitation.). Absent: vertebral tenderness Neurological exam: Present: alert, oriented X3, CN II-XII intact, other ( Strength in all 4 extremities is 5/5) Psychiatric exam: Present: normal affect, normal mood Skin exam: Present: warm, dry, intact, normal color. Absent: rash Course Vital Signs 06/17/17 06/17/17 00:58 02:25 Temperature 98.0 F 98.3 F Pulse Rate 80 81 Respiratory 16 18 Rate Blood Pressure 131/70 123/66 O2 Sat by Pulse 98 98 Oximetry Medical Decision Making - Medical Decision Making 36-year-old male patient presented to the emergency department for evaluation of ALLERGIC reaction to Lyrica and head injury after expressing a fall. Physical examination did reveal scattered urticaria. Lungs are clear to auscultation with no wheezing. Patient was breathing and speaking without difficulty. Patient does take steroids chronically. Did administer Benadryl and Pepcid here in the department. CT of the brain and facial bones was negative for any acute abnormalities. Patient is feeling better after receiving medications here in the department. We discussed continuation of Benadryl every 6 hours as needed. He is instructed to follow up with his primary care physician for recheck in 1-2 days. He is instructed to return here immediate for any new, worsening, or concerning symptoms. He verbalizes understanding and agrees with this plan. - Radiology Data Radiology results: report reviewed, image reviewed Computed tomography scan of the head without contrast was performed. Ventricles are of normal size. There is no mass effect or midline shift. There is no sign of intracranial hemorrhage. The calvarium is intact. Mild soft tissue swelling over the left frontal bone. Conclusion by Dr. Kam shows negative computed tomography scan of the brain. There is clearing of most the left frontal scalp hematoma compared to old exam. CT of the facial bones was performed. There is fairly normal development in aeration of the paranasal sinuses. Orbital margins are intact. There is no evidence of a blowout fracture. Mandible appears intact. Maxillary is intact. There is no evidence of an orbital mass. Nasal bone is intact. Impression by Dr. Kam shows negative computed tomography scan of facial bones. No fracture. There is clearing of the Mucosal thickening compared to old exam. Disposition Clinical Impression: Facial contusion, Allergic reaction Disposition: HOME SELF-CARE Condition: Good Instructions: General Allergic Reaction (ED), Facial Contusion (ED) Additional Instructions: Apply ice to the painful areas. Continue taking Benadryl every 6 hours as needed for symptom relief. Stopped taking the Lyrica. Follow-up with your doctor for recheck. Return here immediately for any new, worsening, or concerning symptoms. Is patient prescribed a controlled substance at discharge?: No Referrals: Daysi Purdy MD [Primary Care Provider] - 1-2 days Time of Disposition: 02:20
[2017-06-17 02:26] VITALS: BP 123/66; PULSE 81; RESP 18; TEMP 98.3
== END 2017-06-17 02:30 | disposition home or self-care (01) ==
LOC: EC 00:57
DX: L50.0 Allergic urticaria (principal); S00.83XA Contusion of other part of head, initial encounter; M79.89 Other specified soft tissue disorders; I10 Essential (primary) hypertension; M32.9 Systemic lupus erythematosus, unspecified; Z86.718 Personal history of other venous thrombosis and embolism; Z88.8 Allergy status to other drugs, medicaments and biological substances; Z88.2 Allergy status to sulfonamides; Z88.5 Allergy status to narcotic agent; Z79.02 Long term (current) use of antithrombotics/antiplatelets; Z79.899 Other long term (current) drug therapy; W19.XXXA Unspecified fall, initial encounter
CPT/HCPCS: 70450; 70486; 99283

== ENCOUNTER 2018-04-12 14:14 | Emergency (ER) | payer OTHER ==
[2018-04-12 14:20] VITALS: BP 130/78; PULSE 93; RESP 20; TEMP 97.5
[2018-04-12] MEDS ORDERED: METOCLOPRAMIDE 5 MG/ML 2 ML VIAL IVP STA (14:35)
[2018-04-12] MEDS ORDERED: NITROGLYCERIN SL TABS 0.4 MG TAB SUBLINGUAL STA (14:36)
[2018-04-12] MEDS ORDERED: GLUCAGON 1 MG/ML VIAL IVP STA (14:37)
--- NOTE | 2018-04-12 15:05 | XR ---
EXAMINATION TYPE: XR chest 1V DATE OF EXAM: 04/12/2018 COMPARISON: 04/03/2016 HISTORY: 37-year-old male with pain TECHNIQUE: Single frontal view of the chest is obtained. FINDINGS: Cardiomediastinal silhouette, aorta, and pulmonary vasculature are within normal limits. Lungs and pl eural spaces are clear. IMPRESSION: No acute cardiopulmonary process.
--- NOTE | 2018-04-12 15:07 | XR ---
EXAMINATION TYPE: XR soft tissue neck DATE OF EXAM: 04/12/2018 COMPARISON: NONE HISTORY: 37-year-old male with pain TECHNIQUE: 2 views FINDINGS: Epiglottis appears normal. No abnormal narrowing of the subglottic airway. The nasopharynx and oropha rynx are patent. No retained radiopaque foreign body identified. IMPRESSION: No retained radiopaque foreign body seen. Further clinical correlation will be needed if there is con cern for retained/impacted food particles.
--- NOTE | 2018-04-12 15:21 | ED ---
General Adult HPI - General Chief complaint: Skin/Abscess/Foreign Body Stated complaint: food in throat Source: EMS Mode of arrival: EMS Limitations: no limitations - History of Present Illness Initial comments: 37 or female presenting today for chief complaint of food in throat. Patient states he has had a previous food bolus that had been removed by white [employer] hacker Dr. [place] by endoscopy about 6 years ago. Patient states that at that time he did have tears to to the bone he had swallowed. Patient states today he was chewing a piece of steak when he felt lodged in his throat. He states was similar in symptoms his previous experience. He states he attempted to drink water however every Regurgitating up causing him to choke and cough. Patient denies any difficulty breathing. Patient presented today for evaluation. Patient denies any emesis. He states he has been getting up phlegm. He denies any of bowel pain, diarrhea, shortness of breath, dyspnea on exertion, chest pain. Patient states he can feel where the food is, pointing just inferior to the thyroid. Remaining review of systems negative, patient denies any recent fever, chills, shortness of breath, chest pain, back pain, abdominal pain, nausea, numbness or tingling, dysuria or hematuria, constipation or diarrhea, headaches or visual changes, or any other complaints. - Related Data Home Medications Medication Instructions Recorded Confirmed Clopidogrel [Plavix] 75 mg PO DAILY 11/19/13 04/12/18 Hydroxychloroquine Sulfate 200 mg PO BID 11/19/13 04/12/18 [Plaquenil] Acetaminophen [Tylenol Extra 500 mg PO Q6H PRN 04/12/18 04/12/18 Strength] Cellcept 700mg 1,400 mg PO BID 04/12/18 04/12/18 Lisinopril 20 mg PO DAILY 04/12/18 04/12/18 predniSONE 10 mg PO DAILY 04/12/18 04/12/18 Allergies Allergy/AdvReac Type Severity Reaction Status Date / Time Sulfa (Sulfonamide Allergy Rash/Hives Verified 04/12/18 15:17 Antibiotics) hydromorphone HCl AdvReac Chest Pain Verified 04/12/18 15:17 [From Dilaudid] promethazine HCl AdvReac Unknown Verified 04/12/18 15:17 [From Phenergan] Review of Systems ROS Statement: Those systems with pertinent positive or pertinent negative responses have been documented in the HPI. ROS Other: All systems not noted in ROS Statement are negative. Past Medical History Past Medical History: Hypertension Additional Past Medical History / Comment(s): lupus, kidney disease, antiphospholipid , dvt History of Any Multi-Drug Resistant Organisms: None Reported Past Surgical History: Cholecystectomy, Hernia Repair Past Psychological History: No Psychological Hx Reported Smoking Status: Never smoker Past Alcohol Use History: Occasional Past Drug Use History: None Reported General Exam - General Exam Comments Initial Comments: General: The patient is awake and alert, in no distress, and does not appear acutely ill. Eye: +3 mm pupils are equal, round and reactive to light, extra-ocular movements are intact. No nystagmus. There is normal conjunctiva bilaterally. No signs of icterus. Ears, nose, mouth and throat: There are moist mucous membranes and no oral lesions. Neck: The neck is supple, there is no tenderness or JVD. No palpable mass. No choking or coughing. Cardiovascular: There is a regular rate and rhythm. No murmur, rub or gallop is appreciated. Respiratory: Lungs are clear to auscultation, respirations are non-labored, breath sounds are equal. No wheezes, stridor, rales, or rhonchi. Gastrointestinal: Soft, non-distended, non-tender abdomen without masses or organomegaly noted. There is no rebound or guarding present. No CVA tenderness. Bowel sounds are unremarkable. Musculoskeletal: No crepitus to palpation of chest wall. Normal ROM, no tenderness. Strength 5/5. Sensation intact. Pulses equal bilaterally 2+. Neurological: A&O x 3. CN II-XII intact, There are no obvious motor or sensory deficits. Coordination appears grossly intact. Speech is normal. Skin: Skin is warm and dry and no rashes or lesions are noted. Psychiatric: Cooperative, appropriate mood & affect, normal judgment. Limitations: no limitations Course Vital Signs 04/12/18 14:15 Temperature 97.5 F L Pulse Rate 93 Respiratory 20 Rate Blood Pressure 130/78 O2 Sat by Pulse 97 Oximetry - Reevaluation(s) Reevaluation #1: Patient states he coughed hard and states the sensation in throat subsided, stating he believes it went down his throat. Patient was given water and was able to swallow no more regurgitation, coughing. Denies chest pain, nausea, emesis or hemoptysis. Reevaluation #2: Patient continues to drink water without difficulty. Medical Decision Making - Medical Decision Making 37-year-old male presenting today for food bolus. Patient was able to cough and emergency department and no longer felt the food bolus sensation. Patient was no longer having proximal regurgitation of water. He states he is able to swallow fully without sensation of nausea, regurgitation choking. Patient monitored for 30 minutes after food bolus had felt as it went down. He continues to be able to drink water. No new symptoms. At this time do feel patient is stable for discharge with GI follow-up. I did discuss the case with attending provider Dr. Darby throughout patient course who agreed with impression and plan. Return parameters discussed at length with patient who verbalized understanding, patient discharged appearing well. Disposition Clinical Impression: Esophageal obstruction due to food impaction Disposition: HOME SELF-CARE Condition: Good Instructions (If sedation given, give patient instructions): Esophageal Foreign Body (ED) Additional Instructions: Please use medication as discussed. Please follow-up with family doctor in the next 2 days, and Dr. [place] in next 1-2 days. Please return to emergency room if the symptoms increase or worsen or for any other concerns, including blood in spit or vomit/chest pain. Is patient prescribed a controlled substance at d/c from ED?: No Referrals: Daysi Purdy MD [Primary Care Provider] - 1-2 days Marika [place] MD [STAFF PHYSICIAN] - 1-2 days Time of Disposition: 15:21
== END 2018-04-12 15:27 | disposition home or self-care (01) ==
LOC: EC 14:14
DX: T18.128A Food in esophagus causing other injury, initial encounter (principal); I10 Essential (primary) hypertension; M32.9 Systemic lupus erythematosus, unspecified; Z88.2 Allergy status to sulfonamides; Z88.5 Allergy status to narcotic agent; Z88.8 Allergy status to other drugs, medicaments and biological substances; Z79.02 Long term (current) use of antithrombotics/antiplatelets; Z79.52 Long term (current) use of systemic steroids; Z79.899 Other long term (current) drug therapy; Z86.718 Personal history of other venous thrombosis and embolism; Z53.8 Procedure and treatment not carried out for other reasons
CPT/HCPCS: 70360; 71045; 99283

== ENCOUNTER → 2018-05-04 | Outpatient (CLI) | payer OTHER ==
[2018-05-04 10:27] LABS: Appearance,Urine Clear (Clear); Bilirubin,Urine Negative (Negative); Blood,Urine Negative (Negative); Color,Urine Colorless; Glucose,Urine (UA) Negative (Negative); Ketones,Urine Negative (Negative); Leukocyte Esterase,Urine Negative (Negative); Nitrite,Urine Negative (Negative); Protein,Urine Negative (Negative); Specific Gravity,Urine 1.001 (1.001-1.035); Urobilinogen,Urine <2.0 mg/dL (<2.0)
[2018-05-04 10:44] LABS: Basophils # (A) 0.1 k/uL (0-0.2); Basophils % (A) 1 %; Eosinophils # (A) 0.5 k/uL (0-0.7); Eosinophils % (A) 6 %; HGB 13.8 gm/dL (13.0-17.5); Lymphocytes # (A) 0.8 k/uL (1.0-4.8); Lymphocytes % (A) 9 %; MCH 30.5 pg (25.0-35.0); MCHC 33.5 g/dL (31.0-37.0); MCV 90.8 fL (80.0-100.0); Mean Platelet Volume 6.5; Monocytes # (A) 0.5 k/uL (0-1.0); Monocytes % (A) 6 %; Neutrophils # (A) 6.4 k/uL (1.3-7.7); Neutrophils % (A) 77 %; Platelet Count 301 k/uL (150-450); RBC 4.52 m/uL (4.30-5.90); WBC 8.3 k/uL (3.8-10.6)
[2018-05-04 17:46] LABS: Parathyroid Hormone Intact 19.2 pg/mL (14.0-72.0)
[2018-05-04 17:48] LABS: Albumin 4.4 g/dL (3.80-4.90); Magnesium 2.3 mg/dL (1.5-2.4); Phosphorus 3.2 mg/dL (2.4-5.1); Uric Acid 5.5 mg/dL (3.7-8.7)
[2018-05-04 17:49] LABS: Anion Gap 6.5 mmol/L (4.00-12.00); Calcium 9.1 mg/dL (8.7-10.3); Carbon Dioxide 26.5 mmol/L (21.6-31.8); Potassium 4.2 mmol/L (3.5-5.5)
[2018-05-04 19:11] LABS: Creatinine,Urine Random 20.7 mg/dL; Total Protein,Urine Random <4.0 mg/dL (0.0-13.5)
== END ==
LOC: LABWHC1 05-02 12:23
PROVIDERS: ATTEND Internal Medicine Nephrology
DX: E55.9 Vitamin D deficiency, unspecified (principal); M10.9 Gout, unspecified; D64.9 Anemia, unspecified; E21.3 Hyperparathyroidism, unspecified; R80.9 Proteinuria, unspecified
CPT/HCPCS: 36415; 80048; 81003; 82040; 82306; 82570; 82728; 83540; 83550; 83735; 83970; 84100; 84156; 84550; 85025

== ENCOUNTER 2018-06-15 20:49 | Emergency (ER) | payer OTHER ==
[2018-06-15 20:55] VITALS: TEMP 98.5
[2018-06-15] MEDS ORDERED: METOCLOPRAMIDE 5 MG/ML 2 ML VIAL IVP STA (21:20)
[2018-06-15] MEDS ORDERED: SODIUM CHLORIDE 0.9% 1,000 ML IV STA (21:20)
[2018-06-15] MEDS ORDERED: DIAZEPAM 5 MG/ML 2 ML INJ IVP STA (21:21)
[2018-06-15] MEDS ORDERED: KETOROLAC 30 MG/ML 1 ML VIAL IVP STA (21:22)
--- NOTE | 2018-06-15 21:28 | ED ---
Headache HPI - General Chief Complaint: Headache Stated Complaint: Neck Pain, Headache Time Seen by Provider: 06/15/18 21:01 Mode of arrival: ambulatory Limitations: no limitations - History of Present Illness Initial Comments: 's patient is a 37-year-old man who presents with complaint of having headache and neck pain. The patient states that things had started this morning and then gotten worse over the course of the day. He had gone to see his chiropractor as she does have frequent back and neck pain. He was then advised to see his primary physician as a garcia . felt there was a component of sinus. The patient saw Dr. Purdy and then was started on amoxicillin. He also took some ibuprofen and states that his pain had markedly improved for about 6 hours and then recurred. Patient indicates the frontal area but also near the base of the skull or the neck meets. He indicates that throbbing/aching pain. MD Complaint: headache Onset/Timin -: days(s) Onset Description: gradual Location: frontal, occipital, neck Severity: severe Quality: throbbing, constant, worst headache of life Consistency: constant Improves With: nothing Worsens With: movement of head/neck Context: occurred at rest Treatments Prior to Arrival: Ibuprofen - Related Data Home Medications Medication Instructions Recorded Confirmed Clopidogrel [Plavix] 75 mg PO DAILY 11/19/13 06/15/18 Hydroxychloroquine Sulfate 200 mg PO BID 11/19/13 06/15/18 [Plaquenil] Amoxic-Pot Clav 875-125Mg 1 tab PO Q12H 06/15/18 06/15/18 [Augmentin 875-125] Cyclobenzaprine [Flexeril] 10 mg PO HS PRN 06/15/18 06/15/18 Lisinopril [Zestril] 2.5 mg PO DAILY 06/15/18 06/15/18 Mycophenolate Sodium [Mycophenolic 720 mg PO BID 06/15/18 06/15/18 Acid] Allergies Allergy/AdvReac Type Severity Reaction Status Date / Time Sulfa (Sulfonamide Allergy Rash/Hives Verified 06/15/18 23:02 Antibiotics) hydromorphone HCl AdvReac Chest Pain Verified 06/15/18 23:02 [From Dilaudid] promethazine HCl AdvReac Unknown Verified 06/15/18 23:02 [From Phenergan] Review of Systems ROS Statement: Those systems with pertinent positive or pertinent negative responses have been documented in the HPI. ROS Other: All systems not noted in ROS Statement are negative. Constitutional: Denies: fever, chills, weakness Eyes: Denies: eye pain, eye discharge, vision change ENT: Reports: congestion Respiratory: Reports: cough Cardiovascular: Denies: chest pain, palpitations Gastrointestinal: Denies: abdominal pain, nausea, vomiting Musculoskeletal: Denies: back pain Skin: Denies: rash Neurological: Reports: headache. Denies: weakness, numbness, paresthesias, confusion Past Medical History Past Medical History: Hypertension Additional Past Medical History / Comment(s): lupus, kidney disease, antiphospholipid , dvt History of Any Multi-Drug Resistant Organisms: None Reported Past Surgical History: Cholecystectomy, Hernia Repair Past Psychological History: No Psychological Hx Reported Smoking Status: Never smoker Past Alcohol Use History: Occasional Past Drug Use History: None Reported General Exam Limitations: no limitations General appearance: alert, in no apparent distress Head exam: Present: atraumatic, normocephalic Eye exam: Present: normal appearance, PERRL, EOMI. Absent: scleral icterus, conjunctival injection, nystagmus ENT exam: Present: mucous membranes dry Neck exam: Present: normal inspection, full ROM. Absent: tenderness, meningismus Respiratory exam: Present: normal lung sounds bilaterally. Absent: respiratory distress, wheezes, rales, rhonchi, stridor Cardiovascular Exam: Present: regular rate, normal rhythm, normal heart sounds. Absent: systolic murmur, diastolic murmur, rubs, gallop Neurological exam: Present: alert, oriented X3, CN II-XII intact. Absent: motor sensory deficit Skin exam: Present: warm, dry, intact, normal color. Absent: rash Course Vital Signs 06/15/18 20:51 Temperature 98.5 F Pulse Rate 101 H Respiratory 18 Rate Blood Pressure 142/89 O2 Sat by Pulse 100 Oximetry Medical Decision Making - Lab Data Result diagrams: 06/15/18 21:57 06/15/18 21:57 Lab Results 06/15/18 06/15/18 Range/Units 21:57 21:57 WBC 11.7 H (3.8-10.6) k/uL RBC 4.50 (4.30-5.90) m/uL Hgb 13.4 (13.0-17.5) gm/dL Hct 40.0 (39.0-53.0) % MCV 88.8 (80.0-100.0) fL MCH 29.8 (25.0-35.0) pg MCHC 33.5 (31.0-37.0) g/dL RDW 12.6 (11.5-15.5) % Plt Count 269 (150-450) k/uL Neutrophils % 75 % Lymphocytes % 11 % Monocytes % 7 % Eosinophils % 5 % Basophils % 1 % Neutrophils # 8.8 H (1.3-7.7) k/uL Lymphocytes # 1.3 (1.0-4.8) k/uL Monocytes # 0.8 (0-1.0) k/uL Eosinophils # 0.6 (0-0.7) k/uL Basophils # 0.1 (0-0.2) k/uL ESR 23 H (0-15) mm/hr Sodium 138 (137-145) mmol/L Potassium 4.1 (3.5-5.1) mmol/L Chloride 105 (98-107) mmol/L Carbon Dioxide 25 (22-30) mmol/L Anion Gap 8 mmol/L BUN 17 (9-20) mg/dL Creatinine 1.17 (0.66-1.25) mg/dL Est GFR (CKD-EPI)AfAm >90 (>60 ml/min/1.73 sqM) Est GFR (CKD-EPI)NonAf 80 (>60 ml/min/1.73 sqM) Glucose 87 (74-99) mg/dL Calcium 9.3 (8.4-10.2) mg/dL Disposition Clinical Impression: Sinusitis, Cervical pain Disposition: HOME SELF-CARE Condition: Good Instructions (If sedation given, give patient instructions): Sinusitis (ED), Osteoarthritis (DC) Is patient prescribed a controlled substance at d/c from ED?: No Referrals: Daysi Purdy MD [Primary Care Provider] - 1-2 days Mikael Sr DO [Doctor of Osteopathic Medicine] - 1-2 days Jacob Hi MD [STAFF PHYSICIAN] - 1-2 days
[2018-06-15 22:10] LABS: Basophils # (A) 0.1 k/uL (0-0.2); Basophils % (A) 1 %; Eosinophils # (A) 0.6 k/uL (0-0.7); Eosinophils % (A) 5 %; HGB 13.4 gm/dL (13.0-17.5); Lymphocytes # (A) 1.3 k/uL (1.0-4.8); Lymphocytes % (A) 11 %; MCH 29.8 pg (25.0-35.0); MCHC 33.5 g/dL (31.0-37.0); MCV 88.8 fL (80.0-100.0); Mean Platelet Volume 6.6; Monocytes # (A) 0.8 k/uL (0-1.0); Monocytes % (A) 7 %; Neutrophils # (A) 8.8 k/uL (1.3-7.7); Neutrophils % (A) 75 %; Platelet Count 269 k/uL (150-450); RDW 12.6 % (11.5-15.5); WBC 11.7 k/uL (3.8-10.6)
[2018-06-15 22:22] LABS: Anion Gap 8 mmol/L; Blood Urea Nitrogen 17 mg/dL (9-20); Calcium 9.3 mg/dL (8.4-10.2); Carbon Dioxide 25 mmol/L (22-30); Chloride 105 mmol/L (98-107); Glucose 87 mg/dL (74-99); Potassium 4.1 mmol/L (3.5-5.1); Sodium 138 mmol/L (137-145)
--- NOTE | 2018-06-15 22:27 | CT ---
EXAM: CT Head Without Intravenous Contrast CLINICAL HISTORY: Headaches TECHNIQUE: Axial computed tomography images of the head/brain without intravenous contrast. CTDI is 45.2 mGy and DLP is 1021 mGy-cm. This CT exam was performed using one or more of the following dose reduction techniques: automated exposure control, adjustment of the mA and/or kV according to patient size, and/or use of iterative reconstruction technique. COMPARISON: No relevant prior studies available. FINDINGS: Brain: No intracranial hemorrhage or mass effect. No clear acute large vessel territorial infarct. Ventricles: Unremarkable. No ventriculomegaly. Bones/joints: Unremarkable. No acute fracture. Soft tissues: Unremarkable. Sinuses: Mucoperiosteal disease is most pronounced within the sphenoid where there is circumferential thickening as well as an air-fluid level. Favor acute on chronic sinusitis. Mastoid air cells: Unremarkable as visualized. No mastoid effusion. IMPRESSION: Sinusitis, most pronounced within the sphenoid. This is likely an acute on chronic process. No intracranial hemorrhage or mass effect. EXAM: CT Cervical Spine Without Intravenous Contrast CLINICAL HISTORY: Pain. No trauma. TECHNIQUE: Axial computed tomography images of the cervical spine without intravenous contrast. CTDI is 9.8 mGy and DLP is 281.1 mGy-cm. This CT exam was performed using one or more of the following dose reduction techniques: automated exposure control, adjustment of the mA and/or kV according to patient size, and/or use of iterative reconstruction technique. COMPARISON: No relevant prior studies available. FINDINGS: Vertebrae: No acute fracture. Small ossicle adjacent to the T1 spinous process may reflect a remote injury. Discs/spinal canal/neural foramina: Disc degeneration and uncovertebral ridging at C3-4 results in mild-moderate bilateral neural foraminal stenosis. Mild right sided facet arthropathy at C4-5. Soft tissues: Unremarkable. IMPRESSION: Disc degeneration and uncovertebral ridging at C3-4 results in mild- moderate bilateral neural foraminal stenosis.
[2018-06-15 23:05] LABS: Erythrocyte Sedimentation Rate 23 mm/hr (0-15)
[2018-06-15 23:56] VITALS: BP 116/73; PULSE 95; RESP 16
== END 2018-06-15 23:53 | disposition home or self-care (01) ==
LOC: EC 20:49
DX: J32.9 Chronic sinusitis, unspecified (principal); M54.2 Cervicalgia; I10 Essential (primary) hypertension; M32.9 Systemic lupus erythematosus, unspecified; Z86.718 Personal history of other venous thrombosis and embolism; Z90.49 Acquired absence of other specified parts of digestive tract; Z98.890 Other specified postprocedural states; Z79.02 Long term (current) use of antithrombotics/antiplatelets; Z79.899 Other long term (current) drug therapy; Z88.2 Allergy status to sulfonamides; Z88.5 Allergy status to narcotic agent; Z88.8 Allergy status to other drugs, medicaments and biological substances
CPT/HCPCS: 36415; 80048; 85652; 85025; 72125; 70450; 99284; 96374; 96375 ×2; 96361; J2765; J3360; J1885

== ENCOUNTER 2019-03-04 16:36 | Observation (INO) | payer MEDICARE, OTHER ==
[2019-03-04] MEDS ORDERED: NITROGLYCERIN OINT 1 INCH/GM PACKET TOPICAL STA (17:45)
[2019-03-04] MEDS ORDERED: ASPIRIN 81 MG PO STA (17:45)
--- NOTE | 2019-03-04 17:50 | ED ---
General Adult HPI - General Chief complaint: Chest Pain Stated complaint: Chest pain Time Seen by Provider: 03/04/19 17:31 Source: patient, RN notes reviewed Mode of arrival: ambulatory Limitations: no limitations - History of Present Illness Initial comments: Patient is a pleasant 38-year-old male presenting to the emergency Department with chest discomfort. Onset of symptoms was this morning. Symptoms seem to worsen however seem to be somewhat improving now. Discomfort is described as an ache. There is some radiation towards left shoulder as well as left arm. Patient does have some associated dyspnea. Minimal nausea. No diaphoresis. No history of similar symptoms previously. No leg pain or leg swelling. - Related Data Home Medications Medication Instructions Recorded Confirmed Clopidogrel [Plavix] 75 mg PO DAILY 11/19/13 06/15/18 Hydroxychloroquine Sulfate 200 mg PO BID 11/19/13 06/15/18 [Plaquenil] Amoxic-Pot Clav 875-125Mg 1 tab PO Q12H 06/15/18 06/15/18 [Augmentin 875-125] Cyclobenzaprine [Flexeril] 10 mg PO HS PRN 06/15/18 06/15/18 Lisinopril [Zestril] 2.5 mg PO DAILY 06/15/18 06/15/18 Mycophenolate Sodium [Mycophenolic 720 mg PO BID 06/15/18 06/15/18 Acid] Allergies Allergy/AdvReac Type Severity Reaction Status Date / Time Sulfa (Sulfonamide Allergy Rash/Hives Verified 03/04/19 16:55 Antibiotics) hydromorphone HCl AdvReac Chest Pain Verified 03/04/19 16:55 [From Dilaudid] promethazine HCl AdvReac Unknown Verified 03/04/19 16:55 [From Phenergan] Review of Systems ROS Statement: Those systems with pertinent positive or pertinent negative responses have been documented in the HPI. ROS Other: All systems not noted in ROS Statement are negative. Constitutional: Denies: fever Eyes: Denies: eye pain ENT: Denies: ear pain Respiratory: Reports: as per HPI. Denies: cough Cardiovascular: Reports: as per HPI Endocrine: Denies: fatigue Gastrointestinal: Denies: abdominal pain Genitourinary: Denies: dysuria Musculoskeletal: Denies: arthralgia Skin: Denies: rash Neurological: Denies: weakness Past Medical History Past Medical History: Hypertension Additional Past Medical History / Comment(s): lupus, kidney disease, antiphospholipid , dvt History of Any Multi-Drug Resistant Organisms: None Reported Past Surgical History: Cholecystectomy, Hernia Repair Past Psychological History: No Psychological Hx Reported Smoking Status: Never smoker Past Alcohol Use History: Occasional Past Drug Use History: None Reported General Exam Limitations: no limitations General appearance: alert, in no apparent distress Head exam: Present: normocephalic Eye exam: Present: normal appearance Neck exam: Present: normal inspection. Absent: tenderness Respiratory exam: Present: normal lung sounds bilaterally. Absent: chest wall tenderness Cardiovascular Exam: Present: regular rate, normal rhythm Expanded Peripheral pulses: 2+: Radial (R), Radial (L), Posterior Tibialis (R), Posterior Tibialis (L), Dorsalis Pedis (R), Dorsalis Pedis (L) GI/Abdominal exam: Present: soft. Absent: distended, tenderness Extremities exam: Present: normal inspection. Absent: pedal edema, calf tend erness Back exam: Present: tenderness (Minimal tenderness left lateral trapezius near shoulder) Neurological exam: Present: alert Psychiatric exam: Present: normal affect, normal mood Skin exam: Present: normal color Course Vital Signs 03/04/19 03/04/19 03/04/19 16:54 16:55 17:55 Temperature 97.8 F Pulse Rate 68 75 69 Respiratory 18 18 18 Rate Blood Pressure 122/80 108/72 105/76 O2 Sat by Pulse 99 100 100 Oximetry EKG Findings - EKG Comments: EKG Findings:: Normal sinus rhythm 63. [place] 112. QRS 98. QT 408. QTC 417. Normal axis. Normal QRS. Prominent T waves. Medical Decision Making - Medical Decision Making Patient reevaluated and resting comfortably in bed. Patient updated on results and plan. Case was discussed in detail with practitioner Deborah Velasquez, who will admit covering for Dr. Bo, who admits for Dr. Purdy. - Lab Data Result diagrams: 03/04/19 18:07 03/04/19 18:07 Lab Results 03/04/19 03/04/19 03/04/19 Range/Units 18:07 18:07 18:07 WBC 7.9 (3.8-10.6) k/uL RBC 4.31 (4.30-5.90) m/uL Hgb 13.7 (13.0-17.5) gm/dL Hct 39.1 (39.0-53.0) % MCV 90.6 (80.0-100.0) fL MCH 31.7 (25.0-35.0) pg MCHC 34.9 (31.0-37.0) g/dL RDW 12.5 (11.5-15.5) % Plt Count 307 (150-450) k/uL Neutrophils % 61 % Lymphocytes % 24 % Monocytes % 6 % Eosinophils % 7 % Basophils % 1 % Neutrophils # 4.8 (1.3-7.7) k/uL Lymphocytes # 1.9 (1.0-4.8) k/uL Monocytes # 0.5 (0-1.0) k/uL Eosinophils # 0.5 (0-0.7) k/uL Basophils # 0.1 (0-0.2) k/uL PT (9.0-12.0) sec INR (<1.2) APTT (22.0-30.0) sec Sodium 138 (137-145) mmol/L Potassium 4.9 (3.5-5.1) mmol/L Chloride 105 (98-107) mmol/L Carbon Dioxide 24 (22-30) mmol/L Anion Gap 9 mmol/L BUN 20 (9-20) mg/dL Creatinine 1.23 (0.66-1.25) mg/dL Est GFR (CKD-EPI)AfAm 87 (>60 ml/min/1.73 sqM) Est GFR (CKD-EPI)NonAf 75 (>60 ml/min/1.73 sqM) Glucose 89 (74-99) mg/dL Calcium 9.2 (8.4-10.2) mg/dL Magnesium 2.4 H (1.6-2.3) mg/dL Total Bilirubin 0.9 (0.2-1.3) mg/dL AST 29 (17-59) U/L ALT 20 (4-49) U/L Alkaline Phosphatase 53 (38-126) U/L Creatine Kinase 69 (55-170) U/L CK-MB (CK-2) <0.2 (0.0-2.4) ng/mL Troponin I <0.012 (0.000-0.034) ng/mL Total Protein 7.6 (6.3-8.2) g/dL Albumin 4.4 (3.5-5.0) g/dL 03/04/19 Range/Units 18:07 WBC (3.8-10.6) k/uL RBC (4.30-5.90) m/uL Hgb (13.0-17.5) gm/dL Hct (39.0-53.0) % MCV (80.0-100.0) fL MCH (25.0-35.0) pg MCHC (31.0-37.0) g/dL RDW (11.5-15.5) % Plt Count (150-450) k/uL Neutrophils % % Lymphocytes % % Monocytes % % Eosinophils % % Basophils % % Neutrophils # (1.3-7.7) k/uL Lymphocytes # (1.0-4.8) k/uL Monocytes # (0-1.0) k/uL Eosinophils # (0-0.7) k/uL Basophils # (0-0.2) k/uL PT 11.4 (9.0-12.0) sec INR 1.1 (<1.2) APTT 31.5 H (22.0-30.0) sec Sodium (137-145) mmol/L Potassium (3.5-5.1) mmol/L Chloride (98-107) mmol/L Carbon Dioxide (22-30) mmol/L Anion Gap mmol/L BUN (9-20) mg/dL Creatinine (0.66-1.25) mg/dL Est GFR (CKD-EPI)AfAm (>60 ml/min/1.73 sqM) Est GFR (CKD-EPI)NonAf (>60 ml/min/1.73 sqM) Glucose (74-99) mg/dL Calcium (8.4-10.2) mg/dL Magnesium (1.6-2.3) mg/dL Total Bilirubin (0.2-1.3) mg/dL AST (17-59) U/L ALT (4-49) U/L Alkaline Phosphatase (38-126) U/L Creatine Kinase (55-170) U/L CK-MB (CK-2) (0.0-2.4) ng/mL Troponin I (0.000-0.034) ng/mL Total Protein (6.3-8.2) g/dL Albumin (3.5-5.0) g/dL - Radiology Data Radiology results: image reviewed (Chest x-ray no acute process) Disposition Clinical Impression: Chest pain Disposition: ADMITTED IP TO THIS HOSP Is patient prescribed a controlled substance at d/c from ED?: No Referrals: Daysi Purdy MD [Primary Care Provider] - 1-2 days Decision Time: 19:22
[2019-03-04 18:17] LABS: Basophils # (A) 0.1 k/uL (0-0.2); Basophils % (A) 1 %; Eosinophils # (A) 0.5 k/uL (0-0.7); Eosinophils % (A) 7 %; HCT 39.1 % (39.0-53.0); HGB 13.7 gm/dL (13.0-17.5); Lymphocytes # (A) 1.9 k/uL (1.0-4.8); Lymphocytes % (A) 24 %; MCH 31.7 pg (25.0-35.0); MCHC 34.9 g/dL (31.0-37.0); MCV 90.6 fL (80.0-100.0); Mean Platelet Volume 7.4; Monocytes # (A) 0.5 k/uL (0-1.0); Monocytes % (A) 6 %; Neutrophils # (A) 4.8 k/uL (1.3-7.7); Neutrophils % (A) 61 %; Platelet Count 307 k/uL (150-450); RBC 4.31 m/uL (4.30-5.90); RDW 12.5 % (11.5-15.5); WBC 7.9 k/uL (3.8-10.6)
[2019-03-04 18:28] LABS: Albumin 4.4 g/dL (3.5-5.0); Calcium 9.2 mg/dL (8.4-10.2); Magnesium 2.4 mg/dL (1.6-2.3); Potassium 4.9 mmol/L (3.5-5.1); Total Bilirubin 0.9 mg/dL (0.2-1.3); Total Protein 7.6 g/dL (6.3-8.2)
[2019-03-04 18:29] LABS: INR 1.1 (<1.2); Partial Thromboplastin Time 31.5 sec (22.0-30.0); Prothrombin Time 11.4 sec (9.0-12.0)
--- NOTE | 2019-03-04 18:40 | XR ---
EXAMINATION TYPE: XR chest 2V DATE OF EXAM: 03/04/2019 COMPARISON: 04/12/2018 HISTORY: Chest pain TECHNIQUE: 2 views FINDINGS: Heart and mediastinum are normal. Lungs are clear. Diaphragm is normal. Bony thorax appears normal. IMPRESSION: Normal chest. No change.
[2019-03-04 18:49] LABS: Creatine Kinase MB <0.2 ng/mL (0.0-2.4); Troponin I <0.012 ng/mL (0.000-0.034)
[2019-03-04] MEDS ORDERED: NITROGLYCERIN SL TABS 0.4 MG TAB SUBLINGUAL PRN (19:25)
--- NOTE | 2019-03-04 19:58 | CT ---
EXAMINATION TYPE: CT angio chest DATE OF EXAM: 03/04/2019 COMPARISON: None HISTORY: chest pain CT DLP: 315.6 mGycm Automated exposure control for dose reduction was used. CONTRAST: Performed with IV Contrast, patient injected with 80cc mL of Isovue 300. There are 3-D post processed images. The lungs are clear of infiltrate. There is no evidence of a pulmonary mass. There is no pleural effu darien. Heart size is normal. There is no pericardial effusion. There are no hilar masses. There is no mediastinal adenopathy. There is normal contrast opacification of the pulmonary arteries. There are no filling defects. Thoracic spine is intact. Bony thorax is intact. IMPRESSION: Negative CT angiogram of the chest. No evidence of pulmonary embolism.
[2019-03-04] MEDS ORDERED: ALPRAZolam 0.25 MG TAB PO PRN (20:49)
[2019-03-04] MEDS ORDERED: TEMAZEPAM 15 MG CAP PO PRN (20:49)
[2019-03-04] MEDS: HYDROcodone/APAP 5-325MG 1 EACH TAB PO PRN (21:20)
--- NOTE | 2019-03-04 21:22 | XR ---
EXAMINATION TYPE: XR cervical spine limited DATE OF EXAM: 03/04/2019 COMPARISON: 05/02/2015 HISTORY: Pain TECHNIQUE: 3 views FINDINGS: Cervical vertebra have normal spacing and alignment. Posterior elements are intact. [place] axial facet joint is normal. There are no cervical ribs. IMPRESSION: Normal cervical spine. No change.
--- NOTE | 2019-03-04 22:46 | HP ---
HISTORY AND PHYSICAL CHIEF COMPLAINT: Chest pain as well as neck pain and back pain and left arm pain. HISTORY OF PRESENT ILLNESS: This 38-year-old gentleman with a past medical history of multiple medical problems including hypertension, lupus, kidney disease, antiphospholipid antibody, history of DVT being followed Dr. Purdy in the outpatient is currently on disability. The patient is complaining of left-sided chest pain which was rather sharp and radiating in character and also feeling of discomfort. The patient also had discomfort feeling in the left arm and left side of the neck and also subsequently patient also has pain in the left leg also. The patient came to [facility] for evaluation. The patient had previously back problems also. PAST MEDICAL: Hypertension, lupus, kidney disease, antiphospholipid, DVT. MEDICATIONS PRIOR TO ADMISSION: 1. Mycophenolic acid 720 mg p.o. b.i.d. 2. Zestril 2.5 mg daily. 3. Plaquenil 200 mg p.o. b.i.d. 4. Flexeril 10 mg at bedtime. 5. Plavix 75 mg. 6. Augmentin 1 p.o. b.i.d. ALLERGIES: SULFA, DILAUDID, PHENERGAN. FAMILY HISTORY: No history of heart disease or strokes in the family. SOCIAL HISTORY: No history of smoking. No history of alcohol intake. REVIEW OF SYSTEMS: ENT: No history of diminished hearing or vision. CARDIOVASCULAR: As mentioned earlier. RESPIRATORY: As mentioned earlier. GI: No nausea, vomiting, or diarrhea. : No dysuria. NERVOUS: No numbness or weakness. ALLERGY/IMMUNOLOGY: No asthma or hayfever. MUSCULOSKELETAL: As mentioned earlier. HEMATOLOGY/ONCOLOGY: Negative. ENDOCRINE: No history of diabetes or hypothyroidism. SKIN: Negative. CONSTITUTIONAL: As mentioned earlier. PSYCHIATRY As mentioned earlier. PHYSICAL EXAMINATION: Alert and oriented x3. Pulse 85, blood pressure 118/72, respiration 18, temperature 98 degrees, pulse ox 100% on room air. HEENT: Conjunctivae normal. Oral mucosa moist. NECK: No jugular venous distention. No lymph node enlargement. CARDIOVASCULAR: S1, S2. RESPIRATORY: Diminished breath sounds at the bases. No rhonchi, no crackles. ABDOMEN: Soft, nontender. LEGS: No edema, no swelling. NERVOUS SYSTEM: Higher functions mentioned earlier. Moves all four limbs. No focal deficits. LYMPHATICS: No lymph node in neck or axilla. SKIN: No rash. JOINTS: No active deforming arthropathy. LABS: At this time shows WBC 7.2, hemoglobin 13.7, APTT 31.5, and magnesium 2.4. ASSESSMENT: 1. Left-sided chest pain, rule out unstable angina, rule out coronary artery disease. 2. Left neck pain and left arm pain, possible degenerative joint disease of the neck. 3. History of degenerative joint disease of the back. 4. History of hypertension. 5. History of lupus. 6. Kidney disease. 7. Antiphospholipid antibody. 8. Deep venous thrombosis. 9. History of cholecystectomy. 10.History of hernia repair. RECOMMENDATIONS AND DISCUSSION: In this 38-year-old gentleman who presented with multiple complex medical issues, we will monitor the patient closely. I will provide symptomatic treatment, resume the home medications. Cardiology consultation. Rule out myocardial infarction. I would also recommend D-dimer. If it is positive I would recommend a CT angio of the chest. Guarded prognosis because of multiple complex medical issues. Further recommendations to follow. MMODL / IJN: [id number] /
[2019-03-05] MEDS: NITROGLYCERIN OINT 1 INCH/GM PACKET TOPICAL SCH ×3 (01:03→11:31)
[2019-03-05 06:31] LABS: Cholesterol 143 mg/dL (<200); HDL Cholesterol 41 mg/dL (40-60); LDL Cholesterol,Calculated 88 mg/dL (0-99); Triglycerides 70 mg/dL (<150)
[2019-03-05 07:02] VITALS: BP 102/54; PULSE 77; RESP 18; TEMP 97.7
[2019-03-05] MEDS ORDERED: PANTOPRAZOLE 40 MG TABLET PO SCH (07:30)
[2019-03-05] MEDS: HYDROcodone/APAP 5-325MG 1 EACH TAB PO PRN (08:22)
[2019-03-05] MEDS ORDERED: ASPIRIN 325 MG TAB PO SCH (09:00)
--- NOTE | 2019-03-05 11:05 | CONS ---
CONSULTATION CHIEF COMPLAINT: Chest pain. HISTORY OF PRESENT ILLNESS: Max is a 38-year-old gentleman with history of hypertension, SLE, who is currently on disability. He is admitted to the hospital primarily with neck discomfort, chest pain, left arm pain and he also had some discomfort in the leg. His chest pain is mild intensity, precordial, not associated with shortness of breath or diaphoresis. EKG shows sinus rhythm without acute ST-T wave changes. Cardiac enzymes are negative. D- dimer was 0.33. He went on to have a CT scan of the chest that is negative for pulmonary embolism. He is also being worked up for cervical spine issues, had an x-ray that was negative. I believe the chest discomfort is probably musculoskeletal in origin. The patient will need a stress test and echocardiogram for further evaluation of his symptoms. This can be done in the outpatient setting. PAST MEDICAL HISTORY: Past medical history is significant for hypertension, SLE. MEDICATIONS: Include Prinivil 10 daily, Plaquenil, Plavix, mycophenolate. ALLERGY: TO SULFA, DILAUDID, AND PHENERGAN. FAMILY HISTORY: Negative for premature coronary artery disease. SOCIAL HISTORY: Negative for current smoking, EtOH abuse, or drug abuse. REVIEW OF SYSTEMS: HEENT is unremarkable. Cardiac as described above. Respiratory as described above. GI negative. Genitourinary: Negative. Allergy/Immunology: Negative. Skin negative. MUSCULOSKELETAL: Significant for SLE and arthritis. Psychosocial negative. Derm negative. Constitutional: Negative. ONCOLOGICAL negative. Rest of the system review is not relevant. PHYSICAL EXAMINATION: On exam, patient is comfortable at rest. Afebrile. Vital signs are stable. There is no jugular venous distention. Carotid upstroke is normal. There is no bruit. Chest exam reveals good air entry bilaterally. Heart exam reveals first and second heart sounds. No gallop. No murmur. No rub. Abdomen is soft, nontender. Exam of extremities did not reveal any edema. Peripheral pulses are felt. METAL EXPEDITER exam did not reveal focal neurological deficits. LABS: Show a hemoglobin of 13.7, platelet count is 307. Potassium is 4.9, creatinine is 1.2. Tropes are negative. LDL is 88. ASSESSMENT: Precordial pain, sharp, atypical, probably musculoskeletal. Myocardial infarction is ruled out. No other cardiac workup at this time. The patient will have an stress test and echocardiogram for further evaluation. MMODL / IJN: [id number] /
--- NOTE | 2019-03-06 08:23 | DS ---
DISCHARGE SUMMARY DATE OF SERVICE: 03/05/2019 FINAL DIAGNOSES: 1. Left-sided chest pain possibly musculoskeletal, myocardial infarction ruled out, rule out coronary artery disease. 2. Left neck pain and left arm pain, possible degenerative joint disease of the neck. 3. History of degenerative joint disease of the back. 4. History of hypertension. 5. History of lupus. 6. History of kidney disease. 7. Antiphospholipid antibody syndrome. 8. History of deep venous thrombosis. 9. History of cholecystectomy. 10.History of hernia repair. DISCHARGE DISPOSITION: The patient will be discharged in stable condition with guarded prognosis. HISTORY OF PRESENT ILLNESS: This 38-year-old gentleman with a past medical history of multiple medical problems being followed by Dr. Purdy in the outpatient setting was admitted with chest pain, myocardial infarction ruled out. Cardiology saw the patient, recommended outpatient followup. On exam, vitals are stable. CARDIOVASCULAR: S1, S2 muffled. ABDOMEN: Soft. NERVOUS SYSTEM: No focal deficits. A chest CTA was done which showed no evidence of any pulmonary embolism. The D-dimer was negative, also. DISCHARGE ADVICE: 1. Diet is cardiac. 2. Activity limited until followup. 3. Follow up with Dr. Purdy in 2 to 3 days. 4. Follow up with Cardiology as recommended. Discharge medications are: 1. Mycophenolate 360 mg as before. 2. Plaquenil 200 mg p.o. daily. 3. Plavix 75 mg p.o. daily. 4. Prinivil 10 mg p.o. daily. 5. Tylenol p.r.n. Once again, the patient will be discharged in stable condition with guarded prognosis. MMODL / IJN: [id number] /
== END 2019-03-05 13:05 | disposition home or self-care (01) ==
LOC: EC 16:36 → 1SOBS 19:26
PROVIDERS: ADMIT Internal Medicine; ATTEND Internal Medicine
DX: R07.89 Other chest pain (principal); M79.602 Pain in left arm; M54.2 Cervicalgia; M19.90 Unspecified osteoarthritis, unspecified site; I10 Essential (primary) hypertension; M32.9 Systemic lupus erythematosus, unspecified; N28.9 Disorder of kidney and ureter, unspecified; D68.61 Antiphospholipid syndrome; Z86.718 Personal history of other venous thrombosis and embolism; Z79.2 Long term (current) use of antibiotics; Z79.899 Other long term (current) drug therapy; Z79.02 Long term (current) use of antithrombotics/antiplatelets; Z88.5 Allergy status to narcotic agent; Z88.2 Allergy status to sulfonamides; Z88.8 Allergy status to other drugs, medicaments and biological substances; Z90.49 Acquired absence of other specified parts of digestive tract
CPT/HCPCS: 93005 ×2; 99285; 36415; 85379; 80061; 80053; 82550; 82553; 83735; 84484 ×2; 85025; 85610; 85730; 72040; 71046; 71275; G0378 ×2; Q9967

== ENCOUNTER → 2019-11-09 | Outpatient (CLI) | payer MEDICARE | END | disposition home or self-care (01) | LOC: LABWHC1 11:26 | PROVIDERS: ATTEND Internal Medicine | DX: R50.9 Fever, unspecified (principal) | CPT/HCPCS: U0003; C9803 ==

== ENCOUNTER → 2020-06-04 | Outpatient (CLI) | payer MEDICARE | END | disposition home or self-care (01) | LOC: LABWHC1 16:50 | PROVIDERS: ATTEND Internal Medicine | DX: R05 Cough (principal); R50.9 Fever, unspecified | CPT/HCPCS: U0003; C9803 ==

== ENCOUNTER 2020-10-11 20:52 | Emergency (ER) | payer MEDICARE, OTHER ==
[2020-10-11 21:14] VITALS: BP 144/81; RESP 20; TEMP 98.3
[2020-10-11 21:16] VITALS: PULSE 71
[2020-10-11] MEDS ORDERED: BACITRACIN OINT 1 EACH PACKET TOPICAL ONE (21:32)
[2020-10-11] MEDS ORDERED: LIDOCAINE 1% INJ 10MG/ML (20 ML MDV) SQ ONE (21:32)
--- NOTE | 2020-10-11 22:44 | ED ---
Wound/Laceration HPI - General Chief Complaint: Wound/Laceration Stated Complaint: Finger lac Time Seen by Provider: 10/11/20 21:22 Source: patient Mode of arrival: ambulatory Limitations: no limitations - History of Present Illness Initial Comments: Patient is a 39-year-old male presenting to the emergency department with complaints of a laceration to his third finger on the right hand on a piece of metal earlier this morning. He states he does take blood thinners secondary to dvt. He states there was a lot of bleeding at first however he put some tape on it and continued to work throughout the day. Related tape off, continued to ooze and his convinced him that he needed stitches. Patient is up-to-date with his tetanus vaccine. Bleeding is controlled with bandage. He has no further complaints. - Related Data Home Medications Medication Instructions Recorded Confirmed Clopidogrel [Plavix] 75 mg PO DAILY 11/19/13 03/04/19 Hydroxychloroquine Sulfate 200 mg PO DAILY 11/19/13 03/04/19 [Plaquenil] Lisinopril [Prinivil] 10 mg PO DAILY 03/04/19 03/04/19 Mycophenolate Sodium [Mycophenolic 720 mg PO BID 03/04/19 03/06/19 Acid] Previous Rx's Medication Instructions Recorded Acetaminophen Tab [Tylenol Tab] 500 mg PO Q6H PRN #30 tablet 03/05/19 Allergies Allergy/AdvReac Type Severity Reaction Status Date / Time coconut Allergy Anaphylaxis Verified 10/11/20 21:14 Sulfa (Sulfonamide Allergy Rash/Hives Verified 10/11/20 21:14 Antibiotics) walnut Allergy Anaphylaxis Verified 10/11/20 21:14 hydromorphone HCl AdvReac Chest Pain Verified 10/11/20 21:14 [From Dilaudid] promethazine HCl AdvReac Chest Pain Verified 10/11/20 21:14 [From Phenergan] Review of Systems ROS Statement: Those systems with pertinent positive or pertinent negative responses have been documented in the HPI. ROS Other: All systems not noted in ROS Statement are negative. Past Medical History Past Medical History: Deep Vein Thrombosis (DVT), Hypertension, Renal Disease Additional Past Medical History / Comment(s): lupus, kidney disease, antiphospholipid , dvt History of Any Multi-Drug Resistant Organisms: None Reported Past Surgical History: Cholecystectomy, Hernia Repair Past Psychological History: No Psychological Hx Reported Smoking Status: Never smoker Past Alcohol Use History: Occasional Past Drug Use History: None Reported General Exam - General Exam Comments Initial Comments: GENERAL: Patient is well-developed and well-nourished. Patient is nontoxic and in no acute distress. HEAD: Atraumatic, normocephalic. EYES: Pupils equal round and reactive to light, extraocular movements intact, sclera anicteric, conjunctiva are normal. Eyelids were unremarkable. LUNGS: Unlabored respirations. Breath sounds clear to auscultation bilaterally and equal. No wheezes rales or rhonchi. HEART: Regular rate and rhythm without murmurs, rubs or gallops. MUSCULOSKELETAL: Full range of motion of his right hand and fingers. Normal extremities with ashutosh quate strength and normal range of motion, no pitting or edema. No clubbing or cyanosis. NEUROLOGICAL: Patient is alert and oriented x 3. SKIN: Warm, Dry, normal turgor, no rashes. Patient has a 1 cm laceration to the dorsal aspect of his right middle finger, in between his MCP and IP joint. No active bleeding. Limitations: no limitations Course Vital Signs 10/11/20 21:12 Temperature 98.3 F Pulse Rate 71 Respiratory 20 Rate Blood Pressure 144/81 O2 Sat by Pulse 99 Oximetry Procedures - Laceration Laceration #1 Consent Obtained: verbal consent Indication: laceration Site: hand (Right third finger) Size (cm): 1 Description: linear Depth: simple, single layer Anesthetic Used: lidocaine 1% Anesthesia Technique: local infiltration Amount (mls): 2 Pre-repair: irrigated extensively Type of Sutures: nylon Size of Sutures: 5-0 Number of Sutures: 3 Technique: simple, interrupted Patient Tolerated Procedure: well Medical Decision Making - Medical Decision Making Patient is a 31-year-old male here with a 1 cm laceration to his right third digit to happen this morning. His tetanus is up-to-date. Patient's wound was cleaned, closed with 3, 5-0 sutures. He tolerated procedure well. There is no active bleeding. Stable for discharge. Sutures removed in 7-10 days. Disposition Clinical Impression: Laceration of right middle finger Disposition: HOME SELF-CARE Condition: Stable Instructions (If sedation given, give patient instructions): Care For Your Stitches (ED) Additional Instructions: Please return to the Emergency Department if symptoms worsen or any other concerns. Keep area clean and dry. Stitches need to be removed in 7-10 days as discussed. Is patient prescribed a controlled substance at d/c from ED?: No Referrals: Daysi Purdy MD [Primary Care Provider] - 1-2 days Time of Disposition: 22:44
== END 2020-10-11 22:47 | disposition home or self-care (01) ==
LOC: EC 20:52
DX: S61.212A Laceration without foreign body of right middle finger without damage to nail, initial encounter (principal); I10 Essential (primary) hypertension; Z79.899 Other long term (current) drug therapy; Z88.2 Allergy status to sulfonamides; Z88.5 Allergy status to narcotic agent; Z88.8 Allergy status to other drugs, medicaments and biological substances; Z86.718 Personal history of other venous thrombosis and embolism; Z79.02 Long term (current) use of antithrombotics/antiplatelets; Z91.018 Allergy to other foods; W26.8XXA Contact with other sharp object(s), not elsewhere classified, initial encounter; Y92.009 Unspecified place in unspecified non-institutional (private) residence as the place of occurrence of the external cause
CPT/HCPCS: 99282; 12001; J2001

== ENCOUNTER 2020-11-02 10:35 | Emergency (ER) | payer MEDICARE, OTHER ==
[2020-11-02 10:42] VITALS: RESP 18
[2020-11-02] MEDS ORDERED: ONDANSETRON 4 MG/2 ML VIAL IVP STA ×2 (10:55→13:14)
[2020-11-02] MEDS ORDERED: SODIUM CHLORIDE 0.9% 500 ML 500 ML IV STA (10:55)
[2020-11-02] MEDS ORDERED: SODIUM CHLORIDE 0.9% 1,000 ML IV STA (10:55)
--- NOTE | 2020-11-02 10:58 | ED ---
General Adult HPI - General Chief complaint: Nausea/Vomiting/Diarrhea Stated complaint: Abd Pain, Hx COVID Time Seen by Provider: 11/02/20 10:35 Source: patient, RN notes reviewed, old records reviewed Mode of arrival: ambulatory Limitations: no limitations - History of Present Illness Initial comments: This is a 39-year-old male who presents emergency Department with a past medical history significant for lupus and states he has a clotting disorder for which she is on Plavix. Patient also states she's been told that he had some kidney disease when he was a child. Patient comes in today because he had coded on October 24 after he got back from [place] and over the last 3 days he has become very nauseated and vomiting. Patient states he is able to keep fluids down but is not able to eat. Patient denies any diarrhea. Patient denies any fever chills or cough over the last few days. patient states his abdomen feels very nauseous but there is no specific area of pain just occasional generalized discomfort. Patient denies any chest pain difficulty breathing or shortness of breath. Patient denies any recent injury or trauma. Patient has any back pain. - Related Data Home Medications Medication Instructions Recorded Confirmed Clopidogrel [Plavix] 75 mg PO DAILY 11/19/13 11/02/20 Hydroxychloroquine Sulfate 200 mg PO BID 11/19/13 11/02/20 [Plaquenil] Acetaminophen Tab [Tylenol Tab] 1,000 mg PO Q6H PRN 11/02/20 11/02/20 lisinopriL [Zestril] 2.5 mg PO DAILY 11/02/20 11/02/20 predniSONE 10 mg PO DAILY 11/02/20 11/02/20 Allergies Allergy/AdvReac Type Severity Reaction Status Date / Time coconut Allergy Rash/Hives Verified 11/02/20 12:16 Sulfa (Sulfonamide Allergy Rash/Hives Verified 11/02/20 12:16 Antibiotics) walnut Allergy Rash/Hives Verified 11/02/20 12:16 hydromorphone HCl AdvReac Chest Pain Verified 11/02/20 12:16 [From Dilaudid] promethazine HCl AdvReac Chest Pain Verified 11/02/20 12:16 [From Phenergan] Review of Systems ROS Statement: Those systems with pertinent positive or pertinent negative responses have been documented in the HPI. ROS Other: All systems not noted in ROS Statement are negative. Past Medical History Past Medical History: Deep Vein Thrombosis (DVT), Hypertension, Renal Disease Additional Past Medical History / Comment(s): lupus, kidney disease, a ntiphospholipid , dvt History of Any Multi-Drug Resistant Organisms: None Reported Past Surgical History: Cholecystectomy, Hernia Repair Past Psychological History: No Psychological Hx Reported Smoking Status: Never smoker Past Alcohol Use History: Occasional Past Drug Use History: None Reported General Exam - General Exam Comments Initial Comments: GENERAL: Patient is well-developed and well-nourished. Patient is nontoxic and well- hydrated and is in mild distress. ENT: Neck is soft and supple. No significant lymphadenopathy is noted. Oropharynx is clear. Slightly dry mucous membranes. Neck has full range of motion without eliciting any pain. EYES: The sclera were anicteric and conjunctiva were pink and moist. Extraocular movements were intact and pupils were equal round and reactive to light. Eyelids were unremarkable. PULMONARY: Unlabored respirations. Good breath sounds bilaterally. No audible rales rhonchi or wheezing was noted. CARDIOVASCULAR: There is a regular rate and rhythm without any murmurs gallops or rubs. ABDOMEN: Soft and nontender with normal bowel sounds. No palpable organomegaly was noted. There is no palpable pulsatile mass. SKIN: Skin is clear with no lesions or rashes and otherwise unremarkable. NEUROLOGIC: Patient is alert and oriented x3. Cranial nerves II through XII are grossly intact. Motor and sensory are also intact. Normal speech, volume and content. Symmetrical smile. MUSCULOSKELETAL: Normal extremities with adequate strength and full range of motion. No lower extremity swelling or edema. No calf tenderness. LYMPHATICS: No significant lymphadenopathy is noted PSYCHIATRIC: Normal psychiatric evaluation. Limitations: no limitations Course Vital Signs 11/02/20 11/02/20 10:37 12:39 Temperature 98.3 F 98.9 F Pulse Rate 84 72 Respiratory 18 18 Rate Blood Pressure 132/88 117/93 O2 Sat by Pulse 99 97 Oximetry Medical Decision Making - Medical Decision Making Patient received Zofran 2 and 1 dose of Reglan. I will begin the room after the patient a liter half of fluid he will considerably better and stated he was no longer nauseated and he felt like he can go home. KUB showed no acute abnormality. - Lab Data Result diagrams: 11/02/20 11:02 11/02/20 11:02 Lab Results 11/02/20 11/02/20 Range/Units 11:02 11:02 WBC 3.8 (3.8-10.6) k/uL RBC 4.23 L (4.30-5.90) m/uL Hgb 14.1 (13.0-17.5) gm/dL Hct 38.5 L (39.0-53.0) % MCV 91.0 (80.0-100.0) fL MCH 33.3 (25.0-35.0) pg MCHC 36.6 (31.0-37.0) g/dL RDW 13.0 (11.5-15.5) % Plt Count 187 (150-450) k/uL MPV 7.7 Neutrophils % 55 % Lymphocytes % 32 % Monocytes % 7 % Eosinophils % 2 % Basophils % 0 % Neutrophils # 2.1 (1.3-7.7) k/uL Lymphocytes # 1.2 (1.0-4.8) k/uL Monocytes # 0.3 (0-1.0) k/uL Eosinophils # 0.1 (0-0.7) k/uL Basophils # 0.0 (0-0.2) k/uL Hyperchromasia Slight Sodium 138 (137-145) mmol/L Potassium 4.2 (3.5-5.1) mmol/L Chloride 103 (98-107) mmol/L Carbon Dioxide 24 (22-30) mmol/L Anion Gap 11 mmol/L BUN 20 (9-20) mg/dL Creatinine 1.28 H (0.66-1.25) mg/dL Est GFR (CKD-EPI)AfAm 82 (>60 ml/min/1.73 sqM) Est GFR (CKD-EPI)NonAf 71 (>60 ml/min/1.73 sqM) Glucose 98 (74-99) mg/dL Calcium 9.0 (8.4-10.2) mg/dL Total Bilirubin 1.2 (0.2-1.3) mg/dL AST 68 H (17-59) U/L ALT 70 H (4-49) U/L Alkaline Phosphatase 64 (38-126) U/L Total Protein 7.7 (6.3-8.2) g/dL Albumin 4.6 (3.5-5.0) g/dL Amylase 66 (30-110) U/L Lipase 162 (23-300) U/L Disposition Clinical Impression: Acute vomiting Disposition: ADMITTED IP TO THIS [facility] Instructions (If sedation given, give patient instructions): Acute Nausea and Vomiting (ED) Is patient prescribed a controlled substance at d/c from ED?: No Referrals: Daysi Purdy MD [Primary Care Provider] - 1-2 days Time of Disposition: 14:07
[2020-11-02 11:27] LABS: Basophils % (A) 0 %; Eosinophils # (A) 0.1 k/uL (0-0.7); Eosinophils % (A) 2 %; HCT 38.5 % (39.0-53.0); HGB 14.1 gm/dL (13.0-17.5); Hyperchromasia Slight; Lymphocytes # (A) 1.2 k/uL (1.0-4.8); Lymphocytes % (A) 32 %; MCH 33.3 pg (25.0-35.0); MCHC 36.6 g/dL (31.0-37.0); Mean Platelet Volume 7.7; Monocytes # (A) 0.3 k/uL (0-1.0); Monocytes % (A) 7 %; Neutrophils # (A) 2.1 k/uL (1.3-7.7); Neutrophils % (A) 55 %; Platelet Count 187 k/uL (150-450); RBC 4.23 m/uL (4.30-5.90); WBC 3.8 k/uL (3.8-10.6)
[2020-11-02 12:31] LABS: Albumin 4.6 g/dL (3.5-5.0); Potassium 4.2 mmol/L (3.5-5.1); Total Bilirubin 1.2 mg/dL (0.2-1.3); Total Protein 7.7 g/dL (6.3-8.2)
[2020-11-02 12:39] VITALS: BP 117/93; PULSE 72; TEMP 98.9
[2020-11-02] MEDS ORDERED: METOCLOPRAMIDE 5 MG/ML 2 ML VIAL IVP STA (12:40)
[2020-11-02] MEDS ORDERED: ONDANSETRON 4 MG ODT STARTER PACK 2 TAB BTL PO STA (14:07)
--- NOTE | 2020-11-02 14:28 | XR ---
EXAMINATION TYPE: XR KUB DATE OF EXAM: 11/02/2020 COMPARISON: 12/19/2014 HISTORY: Nausea and vomiting TECHNIQUE: 2 views upright FINDINGS: There is no sign of intestinal obstruction or pneumoperitoneum. Fecal pattern is normal. Selma ng bases are clear. There are clips from cholecystectomy. There are no pathologic calcifications over the kidneys. IMPRESSION: Nonacute abdomen. No adverse change.
== END 2020-11-02 14:25 | disposition other institution (70) ==
LOC: EC 10:35
DX: R11.2 Nausea with vomiting, unspecified (principal); I10 Essential (primary) hypertension; Z88.2 Allergy status to sulfonamides; Z88.5 Allergy status to narcotic agent; Z88.8 Allergy status to other drugs, medicaments and biological substances; Z86.16 Personal history of COVID-19; Z90.49 Acquired absence of other specified parts of digestive tract; Z91.018 Allergy to other foods
CPT/HCPCS: 36415; 80053; 82150; 83690; 85025; 74018; 99284; 96374; 96375; 96361; J2765; J2405; S0119

== ENCOUNTER → 2021-07-02 | Outpatient (CLI) | payer MEDICARE, OTHER ==
[2021-07-02 10:36] LABS: Basophils % (A) 1.5 %; Eosinophils # (A) 0.44 X 10*3/uL (0.04-0.35); Eosinophils % (A) 6.4 %; HCT 38.9 % (39.6-50.0); HGB 13.4 g/dL (13.0-17.0); Immature Grans, Automated 0.4 %; Lymphocytes # (A) 1.34 X 10*3/uL (0.90-5.00); Lymphocytes % (A) 19.5 %; MCH 31.2 pg (27.0-32.0); MCHC 34.4 g/dL (32.0-37.0); MCV 90.5 fL (80.0-97.0); Mean Platelet Volume 10.5 fL (9.5-12.2); Monocytes # (A) 0.64 X 10*3/uL (0.20-1.00); Monocytes % (A) 9.3 %; NRBC Per 100 WBC 0 /100 WBCS (0.0-0.0); Neutrophils # (A) 4.32 X 10*3/uL (1.80-7.70); Neutrophils % (A) 62.9 %; Platelet Count 327 X 10*3/uL (140-440); RDW 12.4 % (11.5-14.5); WBC 6.87 X 10*3/uL (4.50-10.00)
[2021-07-02 10:42] LABS: African American GFR (CKD) 72.8 (60.0-200.0); Non-African American GFR(CKD) 62.8 (60.0-200.0)
== END | disposition home or self-care (01) ==
LOC: LABWHC1 07:19
PROVIDERS: ATTEND Internal Medicine Rheumatology
DX: Z51.81 Encounter for therapeutic drug level monitoring (principal); M32.9 Systemic lupus erythematosus, unspecified; N18.9 Chronic kidney disease, unspecified
CPT/HCPCS: 36415; 82565; 85025

== ENCOUNTER → 2022-01-30 | Outpatient (CLI) | payer MEDICARE, OTHER ==
[2022-01-30 18:37] LABS: Basophils # (A) 0.09 X 10*3/uL (0.00-0.10); Basophils % (A) 1.3 %; Eosinophils # (A) 0.57 X 10*3/uL (0.04-0.35); Eosinophils % (A) 8.1 %; HCT 39.9 % (39.6-50.0); HGB 13.4 g/dL (13.0-17.0); Immature Grans, Automated 0.4 %; Lymphocytes # (A) 1.49 X 10*3/uL (0.90-5.00); MCH 31.2 pg (27.0-32.0); MCHC 33.6 g/dL (32.0-37.0); MCV 92.8 fL (80.0-97.0); Mean Platelet Volume 10.1 fL (9.5-12.2); Monocytes % (A) 8.5 %; NRBC Per 100 WBC 0 /100 WBCS (0.0-0.0); Neutrophils % (A) 60.7 %; Platelet Count 285 X 10*3/uL (140-440); RDW 12.8 % (11.5-14.5); WBC 7.08 X 10*3/uL (4.50-10.00)
[2022-01-30 18:53] LABS: ALT 17 U/L (10-49); AST 20 U/L (14-35); African American GFR (CKD) 79.1 (60.0-200.0); Albumin 4.6 g/dL (3.8-4.9); Alkaline Phosphatase 58 U/L (41-126); Bilirubin, Conjugated <0.20 mg/dL (0.20-0.40); Globulin 2.7 g/dL (1.6-3.3); Non-African American GFR(CKD) 68.3 (60.0-200.0); Total Protein 7.3 g/dL (6.2-8.2)
== END | disposition home or self-care (01) ==
LOC: LABWHC1 09:57
PROVIDERS: ATTEND Internal Medicine Rheumatology
DX: Z51.81 Encounter for therapeutic drug level monitoring (principal); M32.9 Systemic lupus erythematosus, unspecified
CPT/HCPCS: 36415; 80076; 82565; 85025

== ENCOUNTER → 2022-03-09 | Outpatient (CLI) | payer MEDICARE, OTHER ==
[2022-03-09 10:39] LABS: Basophils # (A) 0.11 X 10*3/uL (0.00-0.10); Eosinophils # (A) 0.59 X 10*3/uL (0.04-0.35); Eosinophils % (A) 5.2 %; HGB 13.4 g/dL (13.0-17.0); Immature Grans, Automated 0.4 %; Lymphocytes # (A) 1.89 X 10*3/uL (0.90-5.00); Lymphocytes % (A) 16.8 %; MCH 31.2 pg (27.0-32.0); MCHC 34.4 g/dL (32.0-37.0); MCV 90.7 fL (80.0-97.0); Mean Platelet Volume 9.9 fL (9.5-12.2); NRBC Per 100 WBC 0 /100 WBCS (0.0-0.0); Neutrophils # (A) 7.72 X 10*3/uL (1.80-7.70); Neutrophils % (A) 68.6 %; Platelet Count 308 X 10*3/uL (140-440); RDW 12.9 % (11.5-14.5); WBC 11.26 X 10*3/uL (4.50-10.00)
[2022-03-09 10:43] LABS: African American GFR (CKD) 61.5 (60.0-200.0); Non-African American GFR(CKD) 53.1 (60.0-200.0)
== END | disposition home or self-care (01) ==
LOC: LABWHC1 07:13
PROVIDERS: ATTEND Internal Medicine Rheumatology
DX: Z51.81 Encounter for therapeutic drug level monitoring (principal); N18.9 Chronic kidney disease, unspecified; M32.9 Systemic lupus erythematosus, unspecified
CPT/HCPCS: 36415; 82565; 85025

== ENCOUNTER 2024-02-16 15:08 | Emergency (ER) | payer MEDICARE, OTHER ==
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
[2024-02-16 15:32] VITALS: RESP 18; TEMP 98.4
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
[2024-02-16] MEDS: ACETAMINOPHEN TAB 500 MG TAB PO STA (16:29)
[2024-02-16] MEDS: IBUPROFEN 800 MG TAB PO STA (16:30)
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
[2024-02-16 19:34] VITALS: BP 138/77; PULSE 67
== END 2024-02-16 17:18 | disposition home or self-care (01) ==
LOC: EC 15:08
DX: S09.90XA Unspecified injury of head, initial encounter (principal); Z88.1 Allergy status to other antibiotic agents; Z88.2 Allergy status to sulfonamides; Z88.5 Allergy status to narcotic agent; Z88.8 Allergy status to other drugs, medicaments and biological substances; V89.2XXA Person injured in unspecified motor-vehicle accident, traffic, initial encounter; Y92.410 Unspecified street and highway as the place of occurrence of the external cause
CPT/HCPCS: 70450; 71045; 72125; 99285